=== PATIENT | female | born 1965 | race Caucasian/White ===

== ENCOUNTER 2016-09-20 20:07 | Observation (INO) | payer OTHER ==
[2016-09-20] MEDS ORDERED: Naloxone 0.4 mg/ml Inj (Adult) ONE (21:00)
[2016-09-20] MEDS ORDERED: Sodium Chloride 0.9% 1,000 ML IV ONE (21:04)
--- NOTE | 2016-09-20 21:04 | C.PDOC ---
History Of Present Illness Patient presents to the ER after found her lethargic next to insulin needles. No injury or complaint can be noted at this time. Chief Complaint (Nursing): Altered Mental Status History Per: Family () History/Exam Limitations: Clinical Condition Onset/Duration Of Symptoms: Hrs Current Symptoms Are (Timing): Still Present Exacerbating Factor(s): Diabetic Past Medical History Reviewed: Historical Data, Nursing Documentation, Vital Signs Vital Signs: Last Vital Signs Temp Pulse 64 09/20/16 20:20 Resp 20 09/20/16 20:20 BP 85/52 L 09/20/16 20:20 Pulse Ox 100 09/20/16 23:12 - Medical History PMH: Back Problems, Bipolar Disorder, CAD, Diabetes, Deep Vein Thrombosis, HTN, Hypercholesterolemia, Schizophrenia Surgical History: Coronary Stent - [facility] Procedures INSERTION OF ENDOTRACHEAL AIRWAY INTO TRACHEA, VIA OPENING (06/09/16) INSERTION OF INFUSION DEV INTO SUP VENA CAVA, PERC APPROACH (06/09/16) RESPIRATORY VENTILATION, LESS THAN 24 CONSECUTIVE HOURS (06/09/16) Family History: States: No Known Family Hx - Social History Hx Tobacco Use: No Hx Alcohol Use: No Hx Substance Use: No - Immunization History Hx Tetanus Toxoid Vaccination: No Hx Influenza Vaccination: No Hx Pneumococcal Vaccination: No Review Of Systems Psych: Positive for: Other (Lethargic) Physical Exam - Physical Exam Appears: Non-toxic, Other (Lethargic) Skin: Warm, Dry Eye(s): bilateral: Other (Pin point pupils) Oral Mucosa: Moist Chest: Symmetrical, No Tenderness Cardiovascular: Rhythm Regular, No Murmur Respiratory: No Rales, No Rhonchi, No Wheezing Gastrointestinal/Abdominal: Bowel Sounds (tympanic to percussion), Soft, No Tenderness Extremity: Other (Moves extremities) Neurological/Psych: Other (Responsive to light and stimulation.) ED Course And Treatment - Laboratory Results Result Diagrams: 09/20/16 21:07 09/20/16 21:07 O2 Sat by Pulse Oximetry: 100 (Room air) Progress Note: Blood work, urinalysis, EKG, CXR, and head CT w/ contrast ordered. Narcan IVP administered, patient shows improvement after 1 mg of narcan. Critical Care Time - Critical Care Note Total Time (in mins): 40 Documented critical care: time excludes all time spent performing seperately billable procedures. Disposition Discussed With : Sravan Lyle Comment: accepted the pt on his service and took over the care at 12 am Doctor Will See Patient In The: ED Counseled Patient/Family Regarding: Studies Performed, Diagnosis - Disposition Disposition: HOSPITALIZED Disposition Time: 21:04 Condition: FAIR - Clinical Impression Clinical Impression: Hypoglycemia, Altered mental status - Scribe Statement The provider has reviewed the documentation as recorded by the Scribe Timothy Angelo All medical record entries made by the Scribe were at my direction and personally dictated by me. I have reviewed the chart and agree that the record accurately reflects my personal performance of the history, physical exam, medical decision making, and the department course for this patient. I have also personally directed, reviewed, and agree with the discharge instructions and disposition. Decision To Admit - Pt Status Changed To: Hospital Disposition Of: Inpatient - Admit Certification Admit to Inpatient:: After my assessment, the patient will require hospitalization for at least two midnights. This is because of the severity of symptoms shown, intensity of services needed, and/or the medical risk in this patient being treated as an outpatient. - InPatient: Physician Admission Certification:: After my assessment, the patient will require hospitalization for at least two midnights. This is because of the severity of symptoms shown, intensity of services needed, and/or the medical risk in this patient being treated as an outpatient. - . Bed Request Type: Telemetry Admitting Physician: Sravan Lyle Patient Diagnosis: Hypoglycemia, Altered mental status
[2016-09-20] MEDS ORDERED: Naloxone 0.4 mg/ml Inj (Adult) IVP ONE ×2 (21:15→21:30)
[2016-09-20 21:24] LABS: BASO # 0.1 K/uL (0.0-0.2); EOS # 0.4 K/uL (0.0-0.7); EOS % 4.2 % (0.0-4.0); HEMATOCRIT 38.2 % (34.0-47.0); LYMPH # 3.3 K/uL (1.0-4.3); LYMPH % 37.6 % (20.0-40.0); MEAN CELL VOLUME 83.7 fL (81.0-99.0); MEAN CORPUSCULAR HEMOGLOBIN 27.9 pg (27.0-31.0); MEAN CORPUSCULAR HGB CONC 33.3 g/dL (33.0-37.0); MEAN PLATELET VOLUME 8.6 fL (7.2-11.7); MONO # 0.6 K/uL (0.0-0.8); MONO % 6.5 % (0.0-10.0); RED CELL DISTRIBUTION WIDTH 13.6 % (11.5-14.5); WHITE BLOOD COUNT 8.8 K/uL (4.8-10.8)
[2016-09-20 21:30] LABS: CHLORIDE 105 mmol/L (98-107); POTASSIUM 4.8 mmol/L (3.6-5.2); SODIUM 140 mmol/L (132-148)
[2016-09-20 21:32] LABS: AST/SGOT 33 U/L (14-36); BILIRUBIN,TOTAL 0.6 mg/dL (0.2-1.3); CARBON DIOXIDE 25 mmol/L (22-30); GFR AFRICAN-AMERICAN 57
[2016-09-20 21:33] LABS: ALB/GLOB RATIO 1.2 (1.0-2.1); ALKALINE PHOSPHATASE 92 U/L (38-126); ALT/SGPT 35 U/L (9-52); BLOOD UREA NITROGEN 17 mg/dL (7-17); CALCIUM 8.9 mg/dl (8.6-10.4); GLUCOSE,RANDOM 68 mg/dL (65-105)
[2016-09-20 21:42] LABS: RBC URINE 3 /hpf (0-3); URINE BACTERIA MOD (<OCC); URINE BILIRUBIN NEGATIVE (NEGATIVE); URINE BLOOD NEGATIVE (NEGATIVE); URINE GLUCOSE (UA) 3+ mg/dL (Normal); URINE KETONE NEGATIVE (NEGATIVE); URINE LEUKOCYTE ESTERASE 3+ Leu/uL (Negative); URINE PROTEIN 2+ mg/dL (NEGATIVE); URINE UROBILINOGEN NORMAL mg/dL (0.2-1.0); WBC URINE 304 /hpf (0-5)
[2016-09-20 21:46] LABS: URINE COLOR YELLOW (YELLOW)
[2016-09-20] MEDS ORDERED: cefTRIAXone IV 1 gm in Dextros 50 ML IVPB ONE ×2 (21:56→22:04)
--- NOTE | 2016-09-20 22:10 | CT ---
EXAM: CT Head Without Intravenous Contrast CLINICAL HISTORY: 51 years old, female; Injury or trauma; Fall; Initial encounter; Concussion / head injury; Additional info: Sp fall exam done without contrast TECHNIQUE: Axial computed tomography images of the head/brain without intravenous contrast. This CT exam was performed using one or more of the following dose reduction techniques: automated exposure control, adjustment of the mA and/or kV according to patient size, and/or use of iterative reconstruction technique. COMPARISON: CT - HEAD W/O CONTRAST 06/09/2016 5:55:17 AM FINDINGS: Brain: No acute intracranial hemorrhage. No significant white matter disease. No edema. Ventricles: No significant ventriculomegaly. Bones: No acute displaced fracture. Sinuses: Unremarkable as visualized. No acute sinusitis. Mastoid air cells: Unremarkable as visualized. No mastoid effusion. IMPRESSION: No acute intracranial hemorrhage, or suspicious mass effect.
[2016-09-20 22:51] LABS: VENOUS BLOOD GAS BASE EXCESS -0.6 mmol/L (0.0-2.0); VENOUS BLOOD GAS PCO2 64 mmHg (40-60); VENOUS BLOOD PH 7.25 (7.32-7.43)
[2016-09-20] MEDS ORDERED: Dextrose 50% SYRINGE Inj (50 ml) IV STA (23:46)
[2016-09-21] MEDS ORDERED: Dextrose 50% SYRINGE Inj (50 ml) ONE (00:30)
[2016-09-21 01:36] LABS: ABG ALLEN TEST POS; ARTERIAL BLOOD HGB O2 SAT 96.2 % (95.0-98.0); CARBOXYHEMOGLOBIN 1.7 % (0.5-1.5); DRAW SITE RR; HHB 1.1 % (0.0-5.0)
--- NOTE | 2016-09-21 03:59 | CP.PCM.HP ---
Addendum entered and electronically signed by Marleny Longoria DO, DO 07:59: entered in error: patient had history DVT right leg, provocation unknown. no known history cholecystectomy. Addendum entered and electronically signed by Marleny Longoria DO, DO 05:56: Per Clinic EMR, home meds: Celexa 20mg daily HCTZ 25mg daily Lisinopril 5mg daily Simvastatin 10mg HS Gabapentin 300mg TID Humalog 75/25 15u BID Pt has referral/ apt to see Dr. Estrella 09/29 for history of urinary incontinence Original Note: <Marleny Longoria DO - Last Filed: 09/21/16 04:13> History of Present Illness - History of Present Illness History of Present Illness: Patient is a 51 year old female with past medical history of HTN, HLD, DM, right leg DVT, and anxiety who presents to the ED brought by lennie for altered mental status. Lennie states that he saw patient in the afternoon of 09/20, acting normally, watching TV. Lennie states he went out of the house to do errands and that when he came back the patient was on the sofa with her head down and headphones on and was not responding much to his questions. Lennie states that he thought her blood sugar was low so he gave her orange juice but did not notice a change. He states he did not think she looked right so he called EMS. Patient states that she remembered feeling dizzy when getting up to use the bathroom earlier. She states that she knew her fiance was talking to her but she did not feel that she was fully present in the situation. Upon arrival to the ED, the patient received total 1mg narcan. Per ED report, patient became more awake and was talking. At time of examination, patient was at her baseline per her fiance. Patient denies recent medication changes but is not sure of all of her medications. Patient reports cough, snoring, urinary and occasional fecal incontinence, right leg swelling that is chronic, chronic back pain, as well as diabetic nerve pain. PMD: clinic PMHx: as above, as well as Hep C, insominia, urinary and fecal incontinence that has been chronic for years; DVT occurred following cholecystectomy- was on xarelto for 6 months PSHx: IVC filter, cholecystectomy FamHx: denies Social Hx: denies tobacco, alcohol, drugs; lives with fiance; at baseline walks occasionally with a cane Present on Admission - Present on Admission Any Indicators Present on Admission: Yes History of DVT/PE: Yes Review of Systems - Constitutional Constitutional: absent: Chills, Fever - EENT Ears: Dizziness (felt would fall) - Cardiovascular Cardiovascular: absent: Chest Pain, Dyspnea - Respiratory Respiratory: Cough - Gastrointestinal Gastrointestinal: absent: Nausea, Vomiting - Genitourinary Genitourinary: Urinary Incontinence - Musculoskeletal Musculoskeletal: Back Pain - Integumentary Integumentary: Change in Pigmentation (chronic to right leg following DVT) - Neurological Neurological: Tingling Past Patient History - Infectious Disease Hx of Infectious Diseases: None - Past Medical History & Family History Past Medical History?: Yes - Past Social History Smoking Status: Never Smoked - CARDIAC Hx Hypercholesterolemia: Yes Hx Hypertension: Yes - PULMONARY Hx Respiratory Disorders: Yes - ENDOCRINE/METABOLIC Hx Diabetes Mellitus Type 2: Yes - INTEGUMENTARY Hx Camacho: Yes - MUSCULOSKELETAL/RHEUMATOLOGICAL Hx Falls: Yes (Fell on Ice 6-7 months ago) - PSYCHIATRIC Hx Bipolar Disorder: Yes Hx Schizophrenia: Yes Hx Substance Use: No - SURGICAL HISTORY Hx Coronary Stent: Yes - ANESTHESIA Hx Anesthesia: Yes Hx Anesthesia Reactions: No Meds Allergies/Adverse Reactions: Allergies Allergy/AdvReac Type Severity Reaction Status Date / Time No Known Allergies Allergy Verified 09/20/16 20:26 Physical Exam - Constitutional Appears: No Acute Distress, Unkempt - Head Exam Head Exam: ATRAUMATIC, NORMOCEPHALIC - Eye Exam Eye Exam: EOMI, Nystagmus Additional comments: pupils small - ENT Exam ENT Exam: Mucous Membranes Moist - Neck Exam Neck exam: Positive for: Full Rom. Negative for: Lymphadenopathy - Respiratory Exam Respiratory Exam: Clear to Auscultation Bilateral. absent: Rales, Rhonchi, Wheezes - Cardiovascular Exam Cardiovascular Exam: +S1, +S2 - GI/Abdominal Exam GI & Abdominal Exam: Distended, Normal Bowel Sounds, Soft, Tenderness ( suprapubic). absent: Firm - Exam Additional comments: perales catheter present - Extremities Exam Extremities exam: Positive for: pedal edema (bilateral, right greater than left) . Negative for: calf tenderness - Neurological Exam Neurological exam: Alert, CN II-XII Intact, Motor Sensory Deficit, Oriented x3 Additional comments: 5/5 muscle strength upper and lower extremities, no dysmetria - Skin Skin Exam: Warm Additional comments: venous stasis color changes to right leg Results - Vital Signs Recent Vital Signs: Last Vital Signs Temp 97.4 F L 09/21/16 02:15 Pulse 61 09/21/16 02:15 Resp 20 09/21/16 02:15 BP 102/64 09/21/16 02:15 Pulse Ox 99 09/21/16 02:15 - Labs Result Diagrams: 09/20/16 21:07 09/20/16 21:07 Labs: Laboratory Results - last 24 hr 09/21/16 09/21/16 00:33 01:30 Puncture Site Rr pCO2 50 H pO2 100 HCO3 25.4 ABG pH 7.34 L ABG Total CO2 28.5 H ABG O2 Saturation 98.9 H ABG Base Excess 0.6 ABG Hemoglobin 11.6 L ABG Carboxyhemoglobin 1.7 H POC ABG HHb (Measured) 1.1 ABG Methemoglobin 1.0 Pepe Test Pos Hgb O2 Saturation 96.2 Liter Flow 2.0 POC Glucose (mg/dL) 94 Assessment & Plan (1) Altered mental status Assessment and Plan: Head CT negative in ER for hemorrhage patient at baseline per fiance at time of examination patient received 1mg narcan in ER UDS negative, alcohol <10 VBG done initially showed pH of 7.25, lactate 1.0 ABG ordered after examination shows pCO2 of 50, elevated but pH is 7.34 blood sugar 68 on CMP, finger stick shows glucose of 94 patient AAO x3 on time of examination UA done from clean cath by perales catheter- shows 3+ leukocyte esterase, 304 WBC , moderate bacteria Status: Acute (2) Urinary tract infection Assessment and Plan: UA done from clean cath by perales catheter- shows 3+ leukocyte esterase, 304 WBC , moderate bacteria urine culture ordered starting ceftriaxone 1g daily Status: Suspected Diagnosis Date: 12/05/13 (3) Diabetic neuropathy Assessment and Plan: will call patient's pharmacy- [facility]- to verify gabapentin dose Status: Chronic (4) Hypertension Assessment and Plan: patient currently normotensive will verify home medications and start if patient becomes hypertensive Status: Chronic (5) Diabetes mellitus Assessment and Plan: accuchecks achs with sliding scale coverage Status: Chronic (6) History of hypercholesterolemia Assessment and Plan: will verify patient's home medication from pharmacy Status: Chronic (7) Prophylactic measure Assessment and Plan: heparin 5000 q8h protonix 40mg daily Status: Acute Diagnosis Date: 12/05/13 <Sravan Lyle P - Last Filed: 09/26/16 20:23> Results - Vital Signs Recent Vital Signs: Last Vital Signs Temp 99.1 F 09/21/16 15:08 Pulse 71 09/21/16 15:30 Resp 20 09/21/16 15:08 BP 119/77 09/21/16 15:08 Pulse Ox 94 L 09/21/16 15:08 - Labs Result Diagrams: 09/21/16 11:21 09/21/16 11:21 Attending/Attestation - Attestation I have personally seen and examined this patient.: Yes I have fully participated in the care of the patient.: Yes I have reviewed all pertinent clinical information: Yes
[2016-09-21] MEDS: (Novolin R) Insulin Human Regular 100 units/ml vial SC SCH ×3 (08:19→17:52)
--- NOTE | 2016-09-21 08:38 | RAD ---
PROCEDURE: CHEST RADIOGRAPH, 1 VIEW HISTORY: Overdose COMPARISON: 06/14/2016 FINDINGS: LUNGS: Moderate venous congestion. Right hilar prominence. PLEURA: No pneumothorax or pleural fluid seen. CARDIOVASCULAR: Cardiomegaly. Tortuous, prominent, and ectatic aorta. OSSEOUS STRUCTURES: No significant abnormalities. VISUALIZED UPPER ABDOMEN: Normal. OTHER FINDINGS: None. IMPRESSION: Moderate venous congestion. Right hilar prominence.
[2016-09-21] MEDS ORDERED: Pantoprazole 40 mg EC Tab PO SCH (10:00)
[2016-09-21] MEDS ORDERED: cefTRIAXone IV 1 gm in Dextros 1 GM in Dextrose 5% In Water 50 ML IVPB SCH ×2 (10:00)
[2016-09-21 11:34] LABS: BASO # 0.1 K/uL (0.0-0.2); BASO % 0.9 % (0.0-2.0); EOS # 0.3 K/uL (0.0-0.7); EOS % 2.8 % (0.0-4.0); HEMATOCRIT 36.5 % (34.0-47.0); LYMPH # 2.4 K/uL (1.0-4.3); LYMPH % 25.8 % (20.0-40.0); MEAN CORPUSCULAR HEMOGLOBIN 27.7 pg (27.0-31.0); MONO # 0.4 K/uL (0.0-0.8); NRBC % 0.1 % (0.0-2.0); RED CELL DISTRIBUTION WIDTH 13.7 % (11.5-14.5); WHITE BLOOD COUNT 9.2 K/uL (4.8-10.8)
[2016-09-21 11:48] LABS: ALB/GLOB RATIO 1.2 (1.0-2.1); BILIRUBIN,TOTAL 0.7 mg/dL (0.2-1.3); TOTAL PROTEIN 6.4 g/dL (6.3-8.3)
[2016-09-21 11:49] LABS: CALCIUM 8.5 mg/dl (8.6-10.4)
[2016-09-21 16:04] VITALS: BP 119/77; PULSE 71; RESP 20; TEMP 99.1; O2SAT 94
--- NOTE | 2016-09-21 16:15 | CP.PCM.DIS ---
<Violetta Loaiza - Last Filed: 09/21/16 16:16> Provider - Provider Date of Admission: 09/20/16 23:57 Attending physician: Amandeep Blackwell DO Primary care physician: Flakita Dunlap Consults: None Time Spent in preparation of Discharge (in minutes): 60 Hospital Course - Lab Results Lab Results: Most Recent Lab Values WBC 9.2 K/uL (4.8-10.8) 09/21/16 11:21 RBC 4.34 Mil/uL (3.80-5.20) 09/21/16 11:21 Hgb 12.0 g/dL (11.0-16.0) 09/21/16 11:21 Hct 36.5 % (34.0-47.0) 09/21/16 11:21 MCV 84.0 fL (81.0-99.0) 09/21/16 11:21 MCH 27.7 pg (27.0-31.0) 09/21/16 11:21 MCHC 33.0 g/dL (33.0-37.0) 09/21/16 11:21 RDW 13.7 % (11.5-14.5) 09/21/16 11:21 Plt Count 208 K/uL (130-400) 09/21/16 11:21 MPV 9.0 fL (7.2-11.7) 09/21/16 11:21 Neut % (Auto) 66.5 % (50.0-75.0) 09/21/16 11:21 Lymph % (Auto) 25.8 % (20.0-40.0) 09/21/16 11:21 Sandoval % (Auto) 4.0 % (0.0-10.0) 09/21/16 11:21 Eos % (Auto) 2.8 % (0.0-4.0) 09/21/16 11:21 Baso % (Auto) 0.9 % (0.0-2.0) 09/21/16 11:21 Neut # 6.1 K/uL (1.8-7.0) 09/21/16 11:21 Lymph # 2.4 K/uL (1.0-4.3) 09/21/16 11:21 Sandoval # 0.4 K/uL (0.0-0.8) 09/21/16 11:21 Eos # 0.3 K/uL (0.0-0.7) 09/21/16 11:21 Baso # 0.1 K/uL (0.0-0.2) 09/21/16 11:21 PT 10.7 SECONDS (9.7-12.2) 09/20/16 21:07 INR 1.0 09/20/16 21:07 APTT 29 SECONDS (21-34) 09/20/16 21:07 Puncture Site Rr 09/21/16 01:30 pCO2 50 mm/Hg (35-45) H 09/21/16 01:30 pO2 100 mm/Hg (80-100) 09/21/16 01:30 HCO3 25.4 mmol/L (21-28) 09/21/16 01:30 ABG pH 7.34 (7.35-7.45) L 09/21/16 01:30 ABG Total CO2 28.5 mmol/L (22-28) H 09/21/16 01:30 ABG O2 Saturation 98.9 % (95-98) H 09/21/16 01:30 ABG Base Excess 0.6 mmol/L (-2.0-3.0) 09/21/16 01:30 ABG Hemoglobin 11.6 g/dL (11.7-17.4) L 09/21/16 01:30 ABG Carboxyhemoglobin 1.7 % (0.5-1.5) H 09/21/16 01:30 POC ABG HHb (Measured) 1.1 % (0.0-5.0) 09/21/16 01:30 ABG Methemoglobin 1.0 % (0.0-3.0) 09/21/16 01:30 Pepe Test Pos 09/21/16 01:30 VBG pH 7.25 (7.32-7.43) L 09/20/16 22:40 VBG pCO2 64 mmHg (40-60) H 09/20/16 22:40 VBG HCO3 23.3 mmol/L 09/20/16 22:40 VBG Total CO2 30.1 mmol/L (22-28) H 09/20/16 22:40 VBG O2 Sat (Calc) 74.3 % (40-65) H 09/20/16 22:40 VBG Base Excess -0.6 mmol/L (0.0-2.0) L 09/20/16 22:40 VBG Potassium 4.4 mmol/L (3.6-5.2) 09/20/16 22:40 Hgb O2 Saturation 96.2 % (95.0-98.0) 09/21/16 01:30 Sodium 142.0 mmol/l (132-148) 09/20/16 22:40 Chloride 113.0 mmol/L (98-107) H 09/20/16 22:40 Glucose 59 mg/dl (65-105) L 09/20/16 22:40 Lactate 1.0 mmol/L (0.7-2.1) 09/20/16 22:40 Liter Flow 2.0 09/21/16 01:30 Sodium 142 mmol/L (132-148) 09/21/16 11:21 Potassium 5.0 mmol/L (3.6-5.2) 09/21/16 11:21 Chloride 102 mmol/L (98-107) 09/21/16 11:21 Carbon Dioxide 31 mmol/L (22-30) H 09/21/16 11:21 Anion Gap 14 (10-20) 09/21/16 11:21 BUN 20 mg/dL (7-17) H 09/21/16 11:21 Creatinine 1.2 MG/DL (0.7-1.2) 09/21/16 11:21 Est GFR ( Amer) 57 09/21/16 11:21 Est GFR (Non-Af Amer) 47 09/21/16 11:21 POC Glucose (mg/dL) 184 mg/dL (65-110) H 09/21/16 12:05 Random Glucose 95 mg/dL (65-105) 09/21/16 11:21 Calcium 8.5 mg/dl (8.6-10.4) L 09/21/16 11:21 Total Bilirubin 0.7 mg/dL (0.2-1.3) 09/21/16 11:21 AST 34 U/L (14-36) 09/21/16 11:21 ALT 30 U/L (9-52) 09/21/16 11:21 Alkaline Phosphatase 84 U/L (38-126) 09/21/16 11:21 Total Protein 6.4 g/dL (6.3-8.3) 09/21/16 11:21 Albumin 3.5 g/dL (3.5-5.0) 09/21/16 11:21 Globulin 2.9 gm/dL (2.2-3.9) 09/21/16 11:21 Albumin/Globulin Ratio 1.2 (1.0-2.1) 09/21/16 11:21 Venous Blood Potassium 4.4 mmol/L (3.6-5.2) 09/20/16 22:40 Urine Color Yellow (YELLOW) 09/20/16 21:07 Urine Clarity Hazy (Clear) 09/20/16 21:07 Urine pH 5.0 (5.0-8.0) 09/20/16 21:07 Ur Specific [place] 1.022 (1.003-1.030) 09/20/16 21:07 Urine Protein 2+ mg/dL (NEGATIVE) H 09/20/16 21:07 Urine Glucose (UA) 3+ mg/dL (Normal) H 09/20/16 21:07 Urine Ketones Negative mg/dL (NEGATIVE) 09/20/16 21:07 Urine Blood Negative (NEGATIVE) 09/20/16 21:07 Urine Nitrate Positive (NEGATIVE) H 09/20/16 21:07 Urine Bilirubin Negative (NEGATIVE) 09/20/16 21:07 Urine Urobilinogen Normal mg/dL (0.2-1.0) 09/20/16 21:07 Ur Leukocyte Esterase 3+ Eduarda/uL (Negative) H 09/20/16 21:07 Urine WBC (Auto) 304 /hpf (0-5) H 09/20/16 21:07 Urine RBC (Auto) 3 /hpf (0-3) 09/20/16 21:07 Ur Squamous Epith Cells 4 /hpf (0-5) 09/20/16 21:07 Urine Bacteria Mod (<OCC) H 09/20/16 21:07 Urine HCG, Qual Negative (NEGATIVE) 09/20/16 22:43 Salicylates 2.4 mg/dL 1 09/20/16 21:07 Urine Opiates Screen Negative (NEGATIVE) 09/20/16 21:04 Urine Methadone Screen Negative (NEGATIVE) 09/20/16 21:04 Acetaminophen < 10.0 ug/mL (10.0-30.0) L 09/20/16 21:07 Ur Barbiturates Screen Negative (NEGATIVE) 09/20/16 21:04 Ur Phencyclidine Scrn Negative (NEGATIVE) 09/20/16 21:04 Ur Amphetamines Screen Negative (NEGATIVE) 09/20/16 21:04 U Benzodiazepines Scrn Negative (NEGATIVE) 09/20/16 21:04 U Oth Cocaine Metabols Negative (NEGATIVE) 09/20/16 21:04 U Cannabinoids Screen Negative (NEGATIVE) 09/20/16 21:04 Alcohol, Quantitative < 10 mg/dl (0-10) 09/20/16 22:28 Serum Ketones Negative (NEGATIVE) 09/20/16 21:07 - Hospital Course Hospital Course: Patient is a 51 year old female with past medical history of HTN, HLD, DM, right leg DVT, and anxiety who presents to the ED brought by lennie for altered mental status. Lennie states that he saw patient in the afternoon of 09/20, acting normally, watching TV. Lennie states he went out of the house to do errands and that when he came back the patient was on the sofa with her head down and headphones on and was not responding much to his questions. Lennie states that he thought her blood sugar was low so he gave her orange juice but did not notice a change. He states he did not think she looked right so he called EMS. Patient states that she remembered feeling dizzy when getting up to use the bathroom earlier. She states that she knew her fiance was talking to her but she did not feel that she was fully present in the situation. Upon arrival to the ED, the patient received total 1mg narcan. Per ED report, patient became more awake and was talking. At time of examination, patient was at her baseline per her fiance. Patient denies recent medication changes but is not sure of all of her medications. Patient reports cough, snoring, urinary and occasional fecal incontinence, right leg swelling that is chronic, chronic back pain, as well as diabetic nerve pain. Pt admitted to hospital for AMS. CT brain negative. Labs WNL. UDS negative. U /A positive for UTI. Pt started on Antibiotics. AMS resolved on hospital day 0 , repeat lab work also WNL. Pt stable and ready for discharge home as per Dr. Blackwell to continue PO antibiotics for UTI. Pt instructed to follow up with PMD- [facility]. Diagnoses UTI Transient Altered mental status- resolved to baseline Hx urinary incontinence Hx Fecal incontinence HTN HLD Hx R LE DVT anxiety DM Hep C Insomnia Please see EMR for full details of hospitalization. - Date & Time of H&P Date of H&P: 09/21/16 Time of H&P: 03:54 Discharge Exam - Head Exam Head Exam: ATRAUMATIC, NORMAL INSPECTION, NORMOCEPHALIC - Eye Exam Eye Exam: EOMI, Normal appearance, PERRL Pupil Exam: NORMAL ACCOMODATION, PERRL - ENT Exam ENT Exam: Mucous Membranes Moist, Normal Exam - Neck Exam Neck exam: Full Rom, Normal Inspection - Respiratory Exam Respiratory Exam: Clear to PA & Lateral, NORMAL BREATHING PATTERN, UNREMARKABLE. absent: Accessory Muscle Use - Cardiovascular Exam Cardiovascular Exam: REGULAR RHYTHM, +S1, +S2 - GI/Abdominal Exam GI & Abdominal Exam: Normal Bowel Sounds, Soft, Unremarkable. absent: Tenderness - Extremities Exam Extremities exam: normal inspection, pedal edema (trace) - Neurological Exam Neurological exam: Alert, CN II-XII Intact, Oriented x3 - Psychiatric Exam Psychiatric exam: Normal Affect, Normal Mood - Skin Skin Exam: Dry, Intact, Normal Color, Warm Discharge Plan - Discharge Medications Prescriptions: Ciprofloxacin HCl [Cipro] 250 mg PO BID #6 tab - Follow Up Plan Condition: STABLE Disposition: HOME/ ROUTINE Instructions: Ciprofloxacin (By mouth), Urinary Tract Infection in Women (DC), Heart Healthy Diet (DC), Altered Mental Status (GEN) Additional Instructions: Patient medically stable for discharge home as per Dr. Blackwell. Please follow up with your primary care physician - [facility]- within 1 week after discharge from the hospital. Please take all medications as prescribed. You are being discharged on an antibiotic for a urinary tract infection. Please take the antibiotic as written. Eat yogurt on the days you take the antibiotic. If you have a recurrence of symptoms, please return to the hospital. Referrals: [facility] [Outside] <Amandeep Blackwell - Last Filed: 09/21/16 18:08> Provider - Provider Date of Admission: 09/20/16 23:57 Attending physician: Amandeep Blackwell, DO Hospital Course - Lab Results Lab Results: Most Recent Lab Values WBC 9.2 K/uL (4.8-10.8) 09/21/16 11:21 RBC 4.34 Mil/uL (3.80-5.20) 09/21/16 11:21 Hgb 12.0 g/dL (11.0-16.0) 09/21/16 11:21 Hct 36.5 % (34.0-47.0) 09/21/16 11:21 MCV 84.0 fL (81.0-99.0) 09/21/16 11:21 MCH 27.7 pg (27.0-31.0) 09/21/16 11:21 MCHC 33.0 g/dL (33.0-37.0) 09/21/16 11:21 RDW 13.7 % (11.5-14.5) 09/21/16 11:21 Plt Count 208 K/uL (130-400) 09/21/16 11:21 MPV 9.0 fL (7.2-11.7) 09/21/16 11:21 Neut % (Auto) 66.5 % (50.0-75.0) 09/21/16 11:21 Lymph % (Auto) 25.8 % (20.0-40.0) 09/21/16 11:21 Sandoval % (Auto) 4.0 % (0.0-10.0) 09/21/16 11:21 Eos % (Auto) 2.8 % (0.0-4.0) 09/21/16 11:21 Baso % (Auto) 0.9 % (0.0-2.0) 09/21/16 11:21 Neut # 6.1 K/uL (1.8-7.0) 09/21/16 11:21 Lymph # 2.4 K/uL (1.0-4.3) 09/21/16 11:21 Sandoval # 0.4 K/uL (0.0-0.8) 09/21/16 11:21 Eos # 0.3 K/uL (0.0-0.7) 09/21/16 11:21 Baso # 0.1 K/uL (0.0-0.2) 09/21/16 11:21 PT 10.7 SECONDS (9.7-12.2) 09/20/16 21:07 INR 1.0 09/20/16 21:07 APTT 29 SECONDS (21-34) 09/20/16 21:07 Puncture Site Rr 09/21/16 01:30 pCO2 50 mm/Hg (35-45) H 09/21/16 01:30 pO2 100 mm/Hg (80-100) 09/21/16 01:30 HCO3 25.4 mmol/L (21-28) 09/21/16 01:30 ABG pH 7.34 (7.35-7.45) L 09/21/16 01:30 ABG Total CO2 28.5 mmol/L (22-28) H 09/21/16 01:30 ABG O2 Saturation 98.9 % (95-98) H 09/21/16 01:30 ABG Base Excess 0.6 mmol/L (-2.0-3.0) 09/21/16 01:30 ABG Hemoglobin 11.6 g/dL (11.7-17.4) L 09/21/16 01:30 ABG Carboxyhemoglobin 1.7 % (0.5-1.5) H 09/21/16 01:30 POC ABG HHb (Measured) 1.1 % (0.0-5.0) 09/21/16 01:30 ABG Methemoglobin 1.0 % (0.0-3.0) 09/21/16 01:30 Pepe Test Pos 09/21/16 01:30 VBG pH 7.25 (7.32-7.43) L 09/20/16 22:40 VBG pCO2 64 mmHg (40-60) H 09/20/16 22:40 VBG HCO3 23.3 mmol/L 09/20/16 22:40 VBG Total CO2 30.1 mmol/L (22-28) H 09/20/16 22:40 VBG O2 Sat (Calc) 74.3 % (40-65) H 09/20/16 22:40 VBG Base Excess -0.6 mmol/L (0.0-2.0) L 09/20/16 22:40 VBG Potassium 4.4 mmol/L (3.6-5.2) 09/20/16 22:40 Hgb O2 Saturation 96.2 % (95.0-98.0) 09/21/16 01:30 Sodium 142.0 mmol/l (132-148) 09/20/16 22:40 Chloride 113.0 mmol/L (98-107) H 09/20/16 22:40 Glucose 59 mg/dl (65-105) L 09/20/16 22:40 Lactate 1.0 mmol/L (0.7-2.1) 09/20/16 22:40 Liter Flow 2.0 09/21/16 01:30 Sodium 142 mmol/L (132-148) 09/21/16 11:21 Potassium 5.0 mmol/L (3.6-5.2) 09/21/16 11:21 Chloride 102 mmol/L (98-107) 09/21/16 11:21 Carbon Dioxide 31 mmol/L (22-30) H 09/21/16 11:21 Anion Gap 14 (10-20) 09/21/16 11:21 BUN 20 mg/dL (7-17) H 09/21/16 11:21 Creatinine 1.2 MG/DL (0.7-1.2) 09/21/16 11:21 Est GFR ( Amer) 57 09/21/16 11:21 Est GFR (Non-Af Amer) 47 09/21/16 11:21 POC Glucose (mg/dL) 287 mg/dL (65-110) H 09/21/16 16:56 Random Glucose 95 mg/dL (65-105) 09/21/16 11:21 Calcium 8.5 mg/dl (8.6-10.4) L 09/21/16 11:21 Total Bilirubin 0.7 mg/dL (0.2-1.3) 09/21/16 11:21 AST 34 U/L (14-36) 09/21/16 11:21 ALT 30 U/L (9-52) 09/21/16 11:21 Alkaline Phosphatase 84 U/L (38-126) 09/21/16 11:21 Total Protein 6.4 g/dL (6.3-8.3) 09/21/16 11:21 Albumin 3.5 g/dL (3.5-5.0) 09/21/16 11:21 Globulin 2.9 gm/dL (2.2-3.9) 09/21/16 11:21 Albumin/Globulin Ratio 1.2 (1.0-2.1) 09/21/16 11:21 Venous Blood Potassium 4.4 mmol/L (3.6-5.2) 09/20/16 22:40 Urine Color Yellow (YELLOW) 09/20/16 21:07 Urine Clarity Hazy (Clear) 09/20/16 21:07 Urine pH 5.0 (5.0-8.0) 09/20/16 21:07 Ur Specific [place] 1.022 (1.003-1.030) 09/20/16 21:07 Urine Protein 2+ mg/dL (NEGATIVE) H 09/20/16 21:07 Urine Glucose (UA) 3+ mg/dL (Normal) H 09/20/16 21:07 Urine Ketones Negative mg/dL (NEGATIVE) 09/20/16 21:07 Urine Blood Negative (NEGATIVE) 09/20/16 21:07 Urine Nitrate Positive (NEGATIVE) H 09/20/16 21:07 Urine Bilirubin Negative (NEGATIVE) 09/20/16 21:07 Urine Urobilinogen Normal mg/dL (0.2-1.0) 09/20/16 21:07 Ur Leukocyte Esterase 3+ Eduarda/uL (Negative) H 09/20/16 21:07 Urine WBC (Auto) 304 /hpf (0-5) H 09/20/16 21:07 Urine RBC (Auto) 3 /hpf (0-3) 09/20/16 21:07 Ur Squamous Epith Cells 4 /hpf (0-5) 09/20/16 21:07 Urine Bacteria Mod (<OCC) H 09/20/16 21:07 Urine HCG, Qual Negative (NEGATIVE) 09/20/16 22:43 Salicylates 2.4 mg/dL 1 09/20/16 21:07 Urine Opiates Screen Negative (NEGATIVE) 09/20/16 21:04 Urine Methadone Screen Negative (NEGATIVE) 09/20/16 21:04 Acetaminophen < 10.0 ug/mL (10.0-30.0) L 09/20/16 21:07 Ur Barbiturates Screen Negative (NEGATIVE) 09/20/16 21:04 Ur Phencyclidine Scrn Negative (NEGATIVE) 09/20/16 21:04 Ur Amphetamines Screen Negative (NEGATIVE) 09/20/16 21:04 U Benzodiazepines Scrn Negative (NEGATIVE) 09/20/16 21:04 U Oth Cocaine Metabols Negative (NEGATIVE) 09/20/16 21:04 U Cannabinoids Screen Negative (NEGATIVE) 09/20/16 21:04 Alcohol, Quantitative < 10 mg/dl (0-10) 09/20/16 22:28 Serum Ketones Negative (NEGATIVE) 09/20/16 21:07 Attending/Attestation - Attestation I have personally seen and examined this patient.: Yes I have fully participated in the care of the patient.: Yes I have reviewed all pertinent clinical information, including history, physical exam and plan: Yes Notes (Text): 09/21/16 18:06 Medical attending: Patient was seen and examined by me, agrees the above note by medical records auditor. The patient appears to have a slow affect however she was answering all questions appropriately. She is also following commands as well we had her work with physical therapy just to see how well she do she did okay. Review of the urinalysis shows she likely has a UTI and so recommended give her antibiotics. Her blood sugars have been okay as well. Her urine drug screen was negative for opiates. From what I understand there was some initial concern that she could' ve taken some type of narcotic medication hence she was given IV Narcan in the emergency room. It may be that her altered mental status is from a low blood sugar that had recovered by the time she came to the ER or from the UTI Regardless revealing that the patient go home she's going to take by mouth antibiotics for several more days Thank you very much, Amandeep Blackwell
[2016-09-21] MEDS ORDERED: cefTRIAXone IV 1 gm in Dextros 50 ML IVPB SCH (22:00)
== END 2016-09-21 19:50 | disposition home or self-care (01) ==
LOC: C.ER 20:07 → C.9E 23:57 → C.6T 09-21 01:04
PROVIDERS: ADMIT Hospitalist; ATTEND Hospitalist
DX: N39.0 Urinary tract infection, site not specified (principal); E78.00 Pure hypercholesterolemia, unspecified; E78.5 Hyperlipidemia, unspecified; F41.9 Anxiety disorder, unspecified; G47.00 Insomnia, unspecified; G89.29 Other chronic pain; I10 Essential (primary) hypertension; Z95.5 Presence of coronary angioplasty implant and graft; I25.10 Atherosclerotic heart disease of native coronary artery without angina pectoris; B19.20 Unspecified viral hepatitis C without hepatic coma; E11.65 Type 2 diabetes mellitus with hyperglycemia; E11.42 Type 2 diabetes mellitus with diabetic polyneuropathy; Z79.4 Long term (current) use of insulin
CPT/HCPCS: 36415; 70450; 71010; 80053; 80320; 80324; 80329; 80345; 80346; 80349; 80353; 80358; 80361; 81001; 82009; 82803; 82948; 83992; 84703; 85025; 85610; 85730; 87086; 96361; 96374; 96375; 96376; 97116; 97162; G0378; G8978; G8979; J0696; J1644; J2310; J7040

== ENCOUNTER 2016-11-05 20:57 | Observation (INO) | payer OTHER ==
--- NOTE | 2016-11-05 21:36 | C.PDOC ---
History Of Present Illness Patient presents to the ER with a complaint of bilateral lower extremity edema worsening over the last week. Patient has ran out of her medications and presented with a blood sugar level >500. Patient denies fever, chills, nausea, vomiting or SOB. Time Seen by Provider: 11/05/16 21:36 Chief Complaint (Nursing): Lower Extremity Problem/Injury History Per: Patient History/Exam Limitations: no limitations Onset/Duration Of Symptoms: Days (7) Current Symptoms Are (Timing): Still Present Severity: None Pain Scale Rating Of: 0 Recent travel outside of the [place] States: No Additional History Per: Patient Past Medical History Reviewed: Historical Data, Nursing Documentation, Vital Signs Vital Signs: Last Vital Signs Temp 98.2 F 11/06/16 00:30 Pulse 79 11/06/16 00:30 Resp 16 11/06/16 00:30 BP 129/78 11/06/16 00:30 Pulse Ox 96 11/06/16 01:03 - Medical History PMH: Back Problems, Bipolar Disorder, CAD, Diabetes, Deep Vein Thrombosis, HTN, Hypercholesterolemia, Schizophrenia Surgical History: Coronary Stent - [facility] Procedures INSERTION OF ENDOTRACHEAL AIRWAY INTO TRACHEA, VIA OPENING (06/09/16) INSERTION OF INFUSION DEV INTO SUP VENA CAVA, PERC APPROACH (06/09/16) RESPIRATORY VENTILATION, LESS THAN 24 CONSECUTIVE HOURS (06/09/16) Family History: States: No Known Family Hx - Social History Hx Tobacco Use: No Hx Alcohol Use: No Hx Substance Use: No - Immunization History Hx Tetanus Toxoid Vaccination: No Hx Influenza Vaccination: No Hx Pneumococcal Vaccination: No Review Of Systems Constitutional: Negative for: Fever, Chills Eyes: Negative for: Vision Change ENT: Negative for: Throat Pain Cardiovascular: Negative for: Chest Pain Respiratory: Negative for: Shortness of Breath Gastrointestinal: Negative for: Nausea, Vomiting Genitourinary: Negative for: Dysuria Musculoskeletal: Positive for: Other (Bilateral lower extremity edema) Skin: Negative for: Rash, Lesions Neurological: Negative for: Weakness Psych: Negative for: Anxiety Physical Exam - Physical Exam Appears: Non-toxic Skin: Warm, Dry Head: Normacephalic Oral Mucosa: Moist Neck: Supple Chest: Symmetrical, No Tenderness Cardiovascular: Rhythm Regular, No Murmur Respiratory: No Rales, No Rhonchi, No Wheezing Gastrointestinal/Abdominal: Soft, No Tenderness, Distention, Other (Obese. Tympanic to percussion.) Extremity: Pedal Edema (Bilateral, trace.) Extremity: Bilateral: Atraumatic Pulses: Left Dorsalis Pedis: Normal, Right Dorsalis Pedis: Normal Neurological/Psych: Oriented x3, Normal Speech, Normal Cognition Gait: Steady ED Course And Treatment - Laboratory Results Result Diagrams: 11/05/16 22:19 11/05/16 22:19 O2 Sat by Pulse Oximetry: 96 (Room air) Pulse Ox Interpretation: Normal Progress Note: Blood work and urinalysis ordered. Reevaluation Time: 03:14 Reassessment Condition: Improved Critical Care Time - Critical Care Note Total Time (in mins): 30 Documented critical care: time excludes all time spent performing seperately billable procedures. ED OBSERVATION Discharge: Yes Date of observation admission: 11/06/16 Time of observation admission: 01:03 - Progress Note Progress Note: 11/06/16 01:03 vitals stable., repeat acc 420 10 u insulin iv and nss given 11/06/16 03:14 repeat accucheck 84 Disposition Counseled Patient/Family Regarding: Studies Performed, Diagnosis, Need For Followup - Disposition Disposition: HOME/ ROUTINE Disposition Time: 21:36 Condition: FAIR - Clinical Impression Clinical Impression: Hyperglycemia - Scribe Statement The provider has reviewed the documentation as recorded by the Scribdandre Angelo All medical record entries made by the Letitiaibdandre were at my direction and personally dictated by me. I have reviewed the chart and agree that the record accurately reflects my personal performance of the history, physical exam, medical decision making, and the department course for this patient. I have also personally directed, reviewed, and agree with the discharge instructions and disposition.
[2016-11-05 22:27] LABS: NRBC % 0.1 % (0.0-2.0)
[2016-11-05 22:30] LABS: BASO # 0.1 K/uL (0.0-0.2); BASO % 0.9 % (0.0-2.0); EOS # 0.2 K/uL (0.0-0.7); HEMATOCRIT 40.1 % (34.0-47.0); LYMPH # 1.9 K/uL (1.0-4.3); LYMPH % 22.3 % (20.0-40.0); MEAN CELL VOLUME 86.1 fL (81.0-99.0); MEAN CORPUSCULAR HEMOGLOBIN 28.1 pg (27.0-31.0); MEAN CORPUSCULAR HGB CONC 32.6 g/dL (33.0-37.0); MEAN PLATELET VOLUME 9.3 fL (7.2-11.7); MONO # 0.3 K/uL (0.0-0.8); MONO % 4.1 % (0.0-10.0); RED CELL DISTRIBUTION WIDTH 13.5 % (11.5-14.5); WHITE BLOOD COUNT 8.4 K/uL (4.8-10.8)
[2016-11-05 22:32] LABS: CHLORIDE 100 mmol/L (98-107); SODIUM 131 mmol/L (132-148)
[2016-11-05 22:34] LABS: ALB/GLOB RATIO 1.1 (1.0-2.1); ALKALINE PHOSPHATASE 167 U/L (38-126); AST/SGOT 31 U/L (14-36); BILIRUBIN,TOTAL 0.8 mg/dL (0.2-1.3); CARBON DIOXIDE 19 mmol/L (22-30); GFR AFRICAN-AMERICAN 52; TOTAL PROTEIN 6.4 g/dL (6.3-8.3)
[2016-11-05 22:35] LABS: ALT/SGPT 26 U/L (9-52); BLOOD UREA NITROGEN 30 mg/dL (7-17); CALCIUM 7.9 mg/dl (8.6-10.4)
[2016-11-05 22:37] LABS: GLUCOSE,RANDOM 580 mg/dL (65-105)
[2016-11-05] MEDS ORDERED: (Novolin R) Insulin Human Regular 100 units/ml vial SC ONE (22:38)
[2016-11-05] MEDS ORDERED: Sodium Chloride 0.9% 1,000 ML IV ONE (22:39)
[2016-11-05] MEDS ORDERED: (Novolin R) Insulin Human Regular 100 units/ml vial ONE (22:42)
[2016-11-05] MEDS ORDERED: Sodium Chloride 0.9% 1,000 ML ONE (22:44)
[2016-11-05 23:01] LABS: VENOUS BLOOD GAS BASE EXCESS -0.7 mmol/L (0.0-2.0); VENOUS BLOOD GAS PCO2 54 mmHg (40-60)
[2016-11-06] MEDS ORDERED: Sodium Chloride 0.9% 1,000 ML IV ONE (01:01)
[2016-11-06] MEDS ORDERED: (Novolin R) Insulin Human Regular 100 units/ml vial IV ONE (01:01)
[2016-11-06] MEDS ORDERED: Sodium Chloride 0.9% 1,000 ML ONE (01:36)
[2016-11-06] MEDS ORDERED: (Novolin R) Insulin Human Regular 100 units/ml vial ONE (01:37)
[2016-11-06 04:04] VITALS: BP 122/45; PULSE 87; RESP 20; TEMP 98.6; O2SAT 97
== END 2016-11-06 03:17 | disposition home or self-care (01) ==
LOC: C.ER 20:57 → C.9OBSV 11-06 01:02
PROVIDERS: ADMIT Emergency Medicine; ATTEND Emergency Medicine
DX: E11.65 Type 2 diabetes mellitus with hyperglycemia (principal); E78.00 Pure hypercholesterolemia, unspecified; F31.9 Bipolar disorder, unspecified; I10 Essential (primary) hypertension; I25.10 Atherosclerotic heart disease of native coronary artery without angina pectoris; Z95.5 Presence of coronary angioplasty implant and graft; R60.0 Localized edema; Z79.4 Long term (current) use of insulin
CPT/HCPCS: 80053; 82009; 82803; 82948; 83690; 85025; 96360; 96372; 99285; G0378; J7040

== ENCOUNTER 2016-11-24 15:32 | Observation (INO) | payer OTHER ==
[2016-11-24 15:44] VITALS: RESP 18
[2016-11-24] MEDS ORDERED: Sodium Chloride 0.9% 1,000 ML IV ONE ×2 (16:06→19:12)
--- NOTE | 2016-11-24 16:08 | C.PDOC ---
History Of Present Illness 51 year old patient, with a past medical history of non-insulin dependent diabetes, presents to the ED for evaluation of dizziness and tremors that began just prior to arrival. Patient also complains of a rash on her right breast since this morning. Patient has been non-compliant with her diabetes medications. She denies fever, chills, abdominal pain, nausea or vomiting. Time Seen by Provider: 11/24/16 16:05 Chief Complaint (Nursing): Abnormal Skin Integrity History Per: Patient History/Exam Limitations: no limitations Onset/Duration Of Symptoms: Mins (prior to arrival) Current Symptoms Are (Timing): Still Present Severity: Mild Pain Scale Rating Of: 3 Recent travel outside of the [place]: No Past Medical History Reviewed: Historical Data, Nursing Documentation, Vital Signs Vital Signs: Last Vital Signs Temp 97.9 F 11/24/16 15:37 Pulse 73 11/24/16 15:37 Resp 18 11/24/16 15:37 BP 125/71 11/24/16 15:37 Pulse Ox 95 11/24/16 21:36 - Medical History PMH: Back Problems, Bipolar Disorder, CAD, Diabetes, Deep Vein Thrombosis, HTN, Hypercholesterolemia (RIGHT LEG), Schizophrenia Surgical History: Coronary Stent - [facility] Procedures INSERTION OF ENDOTRACHEAL AIRWAY INTO TRACHEA, VIA OPENING (06/09/16) INSERTION OF INFUSION DEV INTO SUP VENA CAVA, PERC APPROACH (06/09/16) RESPIRATORY VENTILATION, LESS THAN 24 CONSECUTIVE HOURS (06/09/16) Family History: States: Unknown Family Hx - Social History Hx Tobacco Use: No Hx Alcohol Use: No Hx Substance Use: No - Immunization History Hx Tetanus Toxoid Vaccination: No Hx Influenza Vaccination: No Hx Pneumococcal Vaccination: No Review Of Systems Except As Marked, All Systems Reviewed And Found Negative. Constitutional: Negative for: Fever, Chills Gastrointestinal: Negative for: Nausea, Vomiting, Abdominal Pain Skin: Positive for: Rash (to right breast) Neurological: Positive for: Dizziness, Other (tremors) Physical Exam - Physical Exam Appears: Well, Non-toxic, No Acute Distress Skin: Normal Color, Warm, Dry, Rash (diffused erythema, edema under Right breast with abrasin and yellowish oozing. No proximal streaking.) Eye(s): bilateral: PERRL Nose: No Flaring, No Discharge Oral Mucosa: Moist, No Drooling Throat: Normal, No Erythema, No Exudate, No Drooling Neck: Supple Cardiovascular: Rhythm Regular Respiratory: No Decreased Breath Sounds, No Accessory Muscle Use, No Stridor, No Wheezing Gastrointestinal/Abdominal: Soft, No Tenderness, No Distention, No Guarding Back: No CVA Tenderness Extremity: No Pedal Edema, No Deformity Neurological/Psych: Oriented x3, Normal Speech ED Course And Treatment - Laboratory Results Result Diagrams: 11/24/16 16:47 11/24/16 16:21 O2 Sat by Pulse Oximetry: 95 (room air) Pulse Ox Interpretation: Normal ED OBSERVATION Discharge: Yes Date of observation admission: 11/24/16 Time of observation admission: 16:10 - Observation admission statement Patient is being placed in observation because:: Hyperglycemia, cellulitis, Hx of IDDM - Goals of Observation Goals of observation are:: Diagnostics, hydration with IVF, re-eval - Progress Note Progress Note: 11/24/16 At 17:37, pt resting comfortably in ED, not in any apparent distress. Afebriule, hemodynamicaly stable. Non-toxic. ABd: Benign. Neurologicaly intact. At 18:25 Repeat FSBS 356 Diagnostics review: CBC- normal study, no leukocytosis. CMP: electrolytes normal. AG 11. UA:(+) WBC, (+)Glu. Serum ketones (-). Hydration with IVF continue. Insulin 6U order. At 21:20, pt is afebrile, hemodynamicaly stable. Tolerate PO ( dinner tray) well in ED. Pt was hydrated with total 2l NS. ENT: no acute findings Lungs: CTA B/L, BS equal B/L. Abd: benign, (-) guarding, (-) rebound, (-) localized tenderness Skin: exam c/w cellulitis under Right breast r/o fungal infection. Back: (-) CVA tenderness. Pt admits, not compliant with all her medication " ran out of my medication few days ago". Pharm[facility] " [facility] called and list of medication obtained. Pt advised on course of ds. ref. to F/u with PMD in 2-3 days for re-eval. return to ED if any worsening or new changes. Disposition Counseled Patient/Family Regarding: Studies Performed, Diagnosis, Need For Followup, Rx Given - Disposition Disposition: HOME/ ROUTINE Disposition Time: 21:36 Condition: STABLE - Clinical Impression Clinical Impression: Hypoglycemia, Cellulitis, Medication refill - PA / EXECUTIVE ASSOCIATE / Resident Statement MD/DO has reviewed & agrees with the documentation as recorded. - Scribe Statement The provider has reviewed the documentation as recorded by the Scribe All medical record entries made by the Scribe were at my direction and personally dictated by me. I have reviewed the chart and agree that the record accurately reflects my personal performance of the history, physical exam, medical decision making, and the department course for this patient. I have also personally directed, reviewed, and agree with the discharge instructions and disposition.
[2016-11-24 16:42] LABS: CHLORIDE 99 mmol/L (98-107)
[2016-11-24 16:43] LABS: POTASSIUM 4.6 mmol/L (3.6-5.2); SODIUM 134 mmol/L (132-148)
[2016-11-24 16:45] LABS: AST/SGOT 44 U/L (14-36); BILIRUBIN,TOTAL 1.3 mg/dL (0.2-1.3); BLOOD UREA NITROGEN 26 mg/dL (7-17); CARBON DIOXIDE 24 mmol/L (22-30); GFR AFRICAN-AMERICAN > 60; TOTAL PROTEIN 7.3 g/dL (6.3-8.3)
[2016-11-24 16:46] LABS: ALKALINE PHOSPHATASE 102 U/L (38-126); ALT/SGPT 23 U/L (9-52); CALCIUM 9.7 mg/dl (8.6-10.4); GLUCOSE,RANDOM 357 mg/dL (65-105)
[2016-11-24 16:57] LABS: BASO # 0.1 K/uL (0.0-0.2); BASO % 1.2 % (0.0-2.0); EOS # 0.2 K/uL (0.0-0.7); EOS % 2.1 % (0.0-4.0); HEMATOCRIT 40.5 % (34.0-47.0); LYMPH # 1.9 K/uL (1.0-4.3); LYMPH % 19.7 % (20.0-40.0); MEAN CORPUSCULAR HEMOGLOBIN 28.1 pg (27.0-31.0); MEAN CORPUSCULAR HGB CONC 33.9 g/dL (33.0-37.0); MEAN PLATELET VOLUME 8.7 fL (7.2-11.7); MONO # 0.4 K/uL (0.0-0.8); NRBC % 0.1 % (0.0-2.0); RED CELL DISTRIBUTION WIDTH 13.4 % (11.5-14.5); WHITE BLOOD COUNT 9.4 K/uL (4.8-10.8)
[2016-11-24 16:58] LABS: MEAN CELL VOLUME 82.7 fL (81.0-99.0)
[2016-11-24 17:31] LABS: RBC URINE 3 /hpf (0-3); URINE BACTERIA FEW (<OCC); URINE BILIRUBIN NEGATIVE (NEGATIVE); URINE BLOOD NEGATIVE (NEGATIVE); URINE COLOR Yellow (YELLOW); URINE GLUCOSE (UA) 3+ mg/dL (Normal); URINE KETONE 1+ mg/dL (NEGATIVE); URINE LEUKOCYTE ESTERASE 2+ Leu/uL (Negative); URINE PROTEIN NEGATIVE (NEGATIVE); URINE UROBILINOGEN NORMAL mg/dL (0.2-1.0); WBC URINE 15 /hpf (0-5)
[2016-11-24] MEDS ORDERED: Sodium Chloride 0.9% 1,000 ML ONE ×2 (17:45→19:49)
[2016-11-24] MEDS ORDERED: cefTRIAXone IV 1 gm in Dextros 50 ML IVPB ONE (17:51)
[2016-11-24] MEDS ORDERED: (Novolin R) Insulin Human Regular 100 units/ml vial IV ONE (18:26)
[2016-11-24] MEDS ORDERED: (Novolin R) Insulin Human Regular 100 units/ml vial ONE (18:33)
[2016-11-24 21:50] VITALS: BP 144/71; PULSE 72; TEMP 97.8; O2SAT 98
== END 2016-11-24 21:36 | disposition home or self-care (01) ==
LOC: C.ER 15:32 → C.9OBSV 16:10
PROVIDERS: ADMIT Emergency Medicine; ATTEND Emergency Medicine
DX: E11.649 Type 2 diabetes mellitus with hypoglycemia without coma (principal); L03.90 Cellulitis, unspecified; E78.00 Pure hypercholesterolemia, unspecified; F20.9 Schizophrenia, unspecified; F31.9 Bipolar disorder, unspecified; I10 Essential (primary) hypertension; I25.10 Atherosclerotic heart disease of native coronary artery without angina pectoris; Z91.19 Patient's noncompliance with other medical treatment and regimen; Z95.5 Presence of coronary angioplasty implant and graft; Z79.84 Long term (current) use of oral hypoglycemic drugs
CPT/HCPCS: 80053; 81001; 82009; 82948; 85025; 96360; 96365; G0378; J0696; J7040

== ENCOUNTER 2016-12-23 01:30 | Emergency (ER) | payer OTHER ==
[2016-12-23 02:03] VITALS: RESP 20
[2016-12-23] MEDS ORDERED: Sodium Chloride 0.9% 500 ML IV ONE (02:13)
[2016-12-23] MEDS ORDERED: Sodium Chloride 0.9% 1,000 ML ONE (02:16)
[2016-12-23 02:29] LABS: BASO # 0.1 K/uL (0.0-0.2); EOS # 0.3 K/uL (0.0-0.7); EOS % 2.5 % (0.0-4.0); HEMOGLOBIN 14.2 g/dL (11.0-16.0); LYMPH # 2.2 K/uL (1.0-4.3); LYMPH % 22.1 % (20.0-40.0); MEAN CELL VOLUME 83.6 fL (81.0-99.0); MEAN CORPUSCULAR HEMOGLOBIN 27.9 pg (27.0-31.0); MEAN CORPUSCULAR HGB CONC 33.3 g/dL (33.0-37.0); MEAN PLATELET VOLUME 9.2 fL (7.2-11.7); MONO # 0.3 K/uL (0.0-0.8); MONO % 3.1 % (0.0-10.0); NEUT # 7.2 K/uL (1.8-7.0); NEUT % 71.3 % (50.0-75.0); RBC 5.1 Mil/uL (3.80-5.20); RED CELL DISTRIBUTION WIDTH 13.7 % (11.5-14.5); WHITE BLOOD COUNT 10.1 K/uL (4.8-10.8)
[2016-12-23 02:52] LABS: ALBUMIN 4.6 g/dL (3.5-5.0)
[2016-12-23 02:56] LABS: ALB/GLOB RATIO 1.1 (1.0-2.1); CALCIUM 9.7 mg/dl (8.6-10.4)
--- NOTE | 2016-12-23 03:34 | C.PDOC ---
History Of Present Illness 51 year old female who presents to the ER with a complaint of vomiting since yesterday. Denies abdominal pain, diarrhea, fever, sick contact, or recent travel. Time Seen by Provider: 12/23/16 02:04 Chief Complaint (Nursing): Abdominal Pain History Per: Patient History/Exam Limitations: no limitations Onset/Duration Of Symptoms: Days Current Symptoms Are (Timing): Still Present Associated Symptoms: Vomiting. denies: Fever, Chills, Diarrhea Exacerbating Factors: None Alleviating Factors: None Recent travel outside of the [place]: No Abnormal Vaginal Bleeding: No Past Medical History Reviewed: Historical Data, Nursing Documentation, Vital Signs Vital Signs: Last Vital Signs Temp 97.8 F 12/23/16 04:17 Pulse 76 12/23/16 04:17 Resp 20 12/23/16 04:17 BP 124/82 12/23/16 04:17 Pulse Ox 100 12/23/16 04:48 - Medical History PMH: Back Problems, Bipolar Disorder, CAD, Diabetes, Deep Vein Thrombosis, HTN, Hypercholesterolemia (RIGHT LEG), Schizophrenia Surgical History: Coronary Stent - [facility] Procedures INSERTION OF ENDOTRACHEAL AIRWAY INTO TRACHEA, VIA OPENING (06/09/16) INSERTION OF INFUSION DEV INTO SUP VENA CAVA, PERC APPROACH (06/09/16) RESPIRATORY VENTILATION, LESS THAN 24 CONSECUTIVE HOURS (06/09/16) Family History: States: Unknown Family Hx - Social History Hx Tobacco Use: No Hx Alcohol Use: No Hx Substance Use: No - Immunization History Hx Tetanus Toxoid Vaccination: No Hx Influenza Vaccination: No Hx Pneumococcal Vaccination: No Review Of Systems Constitutional: Negative for: Fever, Chills Gastrointestinal: Positive for: Vomiting. Negative for: Abdominal Pain, Diarrhea Physical Exam - Physical Exam Appears: Non-toxic Skin: Normal Color, Warm, Dry Head: Atraumatic, Normacephalic Oral Mucosa: Moist Chest: Symmetrical, No Tenderness Cardiovascular: Rhythm Regular, No Murmur Respiratory: Normal Breath Sounds, No Rales, No Rhonchi, No Wheezing Gastrointestinal/Abdominal: Soft, No Tenderness, Other (Obese) Neurological/Psych: Oriented x3, Normal Speech, Normal Cognition ED Course And Treatment - Laboratory Results Result Diagrams: 12/23/16 02:26 12/23/16 04:16 O2 Sat by Pulse Oximetry: 100 (Room air) Pulse Ox Interpretation: Normal Progress Note: Zofran and IV fluids administered. Labs ordered. Prt sleeping in stretcher comfortably in NAD, abdomen remais soft , nontender. Pt now tolerating PO. 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 Pt will follow up with PMD Reevaluation Time: 04:31 Reassessment Condition: Improved Disposition - Disposition Referrals: Clinic,Med Surg [Primary Care Provider] - Disposition: HOME/ ROUTINE Disposition Time: 04:45 Condition: STABLE Additional Instructions: Take zofran as needed or vomiting LIQUID DIET AND SOFT DIET NO SOLIDS, DAIRY RETURN TO er IF A Prescriptions: Ondansetron [Zofran Odt] 4 mg PO TID #7 odt Instructions: Vomiting in Children (ED) - Clinical Impression Clinical Impression: Vomiting - Scribe Statement The provider has reviewed the documentation as recorded by the Scribdandre Angelo All medical record entries made by the Letitiaibdandre were at my direction and personally dictated by me. I have reviewed the chart and agree that the record accurately reflects my personal performance of the history, physical exam, medical decision making, and the department course for this patient. I have also personally directed, reviewed, and agree with the discharge instructions and disposition.
[2016-12-23 04:18] VITALS: BP 124/82; PULSE 76; TEMP 97.8
[2016-12-23 04:21] LABS: ALBUMIN 3.7 g/dL (3.5-5.0)
[2016-12-23 04:24] LABS: CALCIUM 8.8 mg/dl (8.6-10.4)
[2016-12-23 04:48] VITALS: O2SAT 100
== END 2016-12-23 05:00 | disposition home or self-care (01) ==
LOC: C.ER 01:30 → SUPCPDRO 01:30 → C.ER 05:00
DX: R11.10 Vomiting, unspecified (principal)
CPT/HCPCS: 80053; 83690; 85025; 96361; 96374; 99285; J2405; J7040

== ENCOUNTER 2017-12-04 10:03 | Emergency (ER) | payer OTHER ==
[2017-12-04 10:04] VITALS: BMI 43.0
[2017-12-04] MEDS ORDERED: Sodium Chloride 0.9% 1,000 ML IV ONE ×2 (10:29→11:51)
[2017-12-04] MEDS ORDERED: Sodium Chloride 0.9% 1,000 ML ONE ×2 (10:42→15:28)
[2017-12-04 11:21] LABS: BARBITURATES, UR NEGATIVE (NEGATIVE); BENZODIAZEPINES, UR NEGATIVE (NEGATIVE); OPIATES, UR NEGATIVE (NEGATIVE); PHENCYCLIDINE, UR NEGATIVE (NEGATIVE)
[2017-12-04 11:26] LABS: BASO # 0.1 K/uL (0.0-0.2); BASO % 1.2 % (0.0-2.0); EOS # 0.2 K/uL (0.0-0.7); EOS % 1.9 % (0.0-4.0); HEMOGLOBIN 12.8 g/dL (11.0-16.0); LYMPH # 2.8 K/uL (1.0-4.3); LYMPH % 26.5 % (20.0-40.0); MEAN CELL VOLUME 83.2 fL (81.0-99.0); MEAN CORPUSCULAR HEMOGLOBIN 28.5 pg (27.0-31.0); MEAN CORPUSCULAR HGB CONC 34.2 g/dL (33.0-37.0); MEAN PLATELET VOLUME 8.9 fL (7.2-11.7); MONO # 0.5 K/uL (0.0-0.8); MONO % 4.8 % (0.0-10.0); NEUT % 65.6 % (50.0-75.0); RBC 4.5 Mil/uL (3.80-5.20); RED CELL DISTRIBUTION WIDTH 13.3 % (11.5-14.5); WHITE BLOOD COUNT 10.7 K/uL (4.8-10.8)
--- NOTE | 2017-12-04 11:27 | RAD ---
HISTORY: dyspnea COMPARISON: Comparison made with prior chest radiograph dated 09/20/2016. The head TECHNIQUE: Chest PA and lateral FINDINGS: LUNGS: Previously suspected venous congestive changes with apparently resolved however the interstitial markings are slightly increased and coarsened. Rule out sequela of reactive/ inflammatory airway disease or viral illness. PLEURA: No significant pleural effusion identified. No pneumothorax apparent. CARDIOVASCULAR: Normal. OSSEOUS STRUCTURES: No significant abnormalities. VISUALIZED UPPER ABDOMEN: Normal. OTHER FINDINGS: None. IMPRESSION: Previously suspected venous congestive changes with apparently resolved however the interstitial markings are slightly increased and coarsened. Rule out sequela of reactive/ inflammatory airway disease or viral illness.
[2017-12-04 11:34] LABS: PROTHROMBIN TIME 10.8 SECONDS (9.7-12.2)
[2017-12-04 11:40] LABS: ALB/GLOB RATIO 1.3 (1.0-2.1); ALBUMIN 3.9 g/dL (3.5-5.0)
--- NOTE | 2017-12-04 11:49 | C.PDOC ---
History Of Present Illness 52 yo female w/PMHx of NIDDM, diabetic neuropathy, bipolar ds, HTN come in c/o " my both legs are swollen and hurts". Pt admits, non-complaint with medication , last dose of " all my medication was 6 months ago". AT present time, pt is very poor historian, racing thoughts, " my brother today", unable to provide more info on present illness. Ambulatory, not in any apparent distress. Time Seen by Provider: 12/04/17 10:05 Chief Complaint (Nursing): Lower Extremity Problem/Injury History Per: Patient Past Medical History Reviewed: Historical Data, Nursing Documentation, Vital Signs Vital Signs: Last Vital Signs Temp 98.3 F 12/04/17 15:30 Pulse 88 12/04/17 15:30 Resp 20 12/04/17 15:30 BP 133/86 12/04/17 15:30 Pulse Ox 97 12/04/17 15:30 - Medical History PMH: Back Problems, Bipolar Disorder, CAD, Diabetes, Deep Vein Thrombosis, HTN, Hypercholesterolemia (RIGHT LEG), Schizophrenia Denies: Chronic Kidney Disease Surgical History: Coronary Stent - [facility] Procedures INSERTION OF ENDOTRACHEAL AIRWAY INTO TRACHEA, VIA OPENING (06/09/16) INSERTION OF INFUSION DEV INTO SUP VENA CAVA, PERC APPROACH (06/09/16) RESPIRATORY VENTILATION, LESS THAN 24 CONSECUTIVE HOURS (06/09/16) Family History: States: Unknown Family Hx - Social History Hx Tobacco Use: No Hx Alcohol Use: No Hx Substance Use: No - Immunization History Hx Tetanus Toxoid Vaccination: No Hx Influenza Vaccination: No Hx Pneumococcal Vaccination: No Review Of Systems Except As Marked, All Systems Reviewed And Found Negative. Musculoskeletal: Positive for: Foot Pain (B/L) Neurological: Negative for: Weakness, Numbness Psych: Positive for: Psychosis Physical Exam - Physical Exam Appears: Well, Non-toxic, No Acute Distress Skin: Normal Color, Warm, Dry Head: Atraumatic, Normacephalic Eye(s): bilateral: PERRL Nose: No Flaring, No Discharge Oral Mucosa: Moist, No Drooling Tongue: Normal Appearing Lips: Normal Appearing Throat: No Drooling Neck: Normal ROM, Trachea Midline, Supple Chest: Symmetrical Cardiovascular: Rhythm Regular, No Murmur, No JVD, Other ((-) carotid bruits B/L ) Respiratory: No Decreased Breath Sounds, No Accessory Muscle Use, No Stridor, No Wheezing Gastrointestinal/Abdominal: Soft, No Tenderness, No Distention, No Guarding Back: No CVA Tenderness Extremity: Normal ROM, No Pedal Edema, No Deformity, Swelling (R>L dorsal edema to foot with mild erythema.) Neurological/Psych: Oriented x3, Normal Speech, Normal Motor, Normal Sensation, Normal Reflexes ED Course And Treatment - Laboratory Results Result Diagrams: 12/04/17 11:21 12/04/17 11:21 ECG: Interpreted By Me, Viewed By Me ECG Rhythm: Sinus Rhythm Interpretation Of ECG: SR@76/min,NAD, no acute T wave or ST-T changes. O2 Sat by Pulse Oximetry: 98 Pulse Ox Interpretation: Normal - Other Rad CXR X-Ray: Read By Radiologist Interpretation: IMPRESSION: Previously suspected venous congestive changes with apparently resolved however the interstitial markings are slightly increased and coarsened. Rule out sequela of reactive/ inflammatory airway disease or viral illness. Progress Note: Pt was OBS in ED for 4 hours and remained stable. On re-eval, pt is AAO#3, reports " feels much better", not in any apparent distress. Afebrile, hemodynamicaly stable, non-toxic. PulseOx 98% RA. ENT: no acute findings. neck: SUpple, (-) meningeal sign, (-) carotid bruits B/L. Lungs: CTA B/L, BS equal B/L. Abd: benign, (-) guarding, (-) rebound. back: (-) CVA tenderness. Right foot: mild dorsal edema and erythema. No proximal streaking. FAROM, no neurovascular deficits. Neurologicaly intact. Blood work review, mild hypoglycemia noted. Ketones negative, VBG- normal study. CXR, EKG- normal study. Case ws discussed with PES, pt was evaluated and case discussed with psych . Pt was psychiatricly cleared and discharge with outpt f/u recommend. Pt has clinical finidngs c/w hyperglycemia, NIDDM, Right foot cellulitis. Bipolar ds. Pt advised. ref. to F/u with PMD in 1-2 days for re- evaluation. return to Ed if any worsening ro new changes. Disposition Counseled Patient/Family Regarding: Studies Performed, Diagnosis, Need For Followup, Rx Given - Disposition Referrals: Jamilah Dutton MD [Staff Provider] - Disposition: HOME/ ROUTINE Disposition Time: 14:01 Condition: STABLE Additional Instructions: Encourage fluids Take medication as prescribed Follow up with PMD, Psychiatrist in 2-3 days for re-evaluation. return to ED if any worsening ro new changes. Prescriptions: Gabapentin [Neurontin] 300 mg PO TID #20 cap Lisinopril [Prinivil] 5 mg PO DAILY #30 tablet MetFORMIN [glucoPHAGE] 1,000 mg PO BID #60 tab Sulfamethoxazole/Trimethoprim [Bactrim DS 800 mg-160 mg] 1 tab PO BID #14 tab Instructions: Hyperglycemia, Adult (DC), Diabetes Type 2 (DC), Cellulitis ( Skin Infection), Adult (DC) Forms: [employer] (Icelandic) - Clinical Impression Clinical Impression: Diabetes mellitus, Hyperglycemia, Cellulitis, Bipolar 2 disorder
[2017-12-04 12:09] LABS: ARTERIAL BLOOD GAS HCO3 25.3 mmol/L (21-28); ARTERIAL BLOOD GAS PCO2 37 mm/Hg (35-45); ARTERIAL BLOOD GAS PH 7.43 (7.35-7.45); ARTERIAL BLOOD GAS PO2 74 mm/Hg (80-100); ARTERIAL BLOOD GAS TCO2 25.7 mmol/L (22-28)
[2017-12-04 13:58] LABS: SQUAMOUS EPITHIAL 3 /hpf (0-5); URINE BILIRUBIN NEGATIVE (NEGATIVE); URINE BLOOD NEGATIVE (NEGATIVE); URINE CLARITY Clear (Clear); URINE COLOR Yellow (YELLOW); URINE GLUCOSE (UA) 3+ mg/dL (Normal); URINE LEUKOCYTE ESTERASE NEG Leu/uL (Negative); URINE PROTEIN 2+ mg/dL (NEGATIVE); URINE UROBILINOGEN NORMAL mg/dL (0.2-1.0)
[2017-12-04] MEDS ORDERED: (Novolin R) Insulin Human Regular 100 units/ml vial IV ONE (14:41)
[2017-12-04] MEDS ORDERED: (Novolin R) Insulin Human Regular 100 units/ml vial ONE (14:56)
[2017-12-04 15:31] VITALS: BP 133/86; PULSE 88; RESP 20; TEMP 98.3
[2017-12-04 17:00] VITALS: O2SAT 98
--- NOTE | 2017-12-05 20:01 | CARD ---
APPROVED REPORT EKG Measurement Heart [id number] <Conclusion> Normal sinus rhythm Possible Left atrial enlargement Borderline ECG
== END 2017-12-04 15:40 | disposition home or self-care (01) ==
LOC: C.ER 10:03
DX: E11.65 Type 2 diabetes mellitus with hyperglycemia (principal); L03.115 Cellulitis of right lower limb; F31.81 Bipolar II disorder; Z91.14 Patient's other noncompliance with medication regimen
CPT/HCPCS: 36600; 71046; 80053; 80324; 80345; 80346; 80349; 80353; 80358; 80361; 81001; 82803; 82948; 83992; 85025; 85610; 85730; 87040; 87086; 87181; 93005; 96361; 96374; 99285; J7030

== ENCOUNTER 2018-03-09 17:59 | Emergency (ER) | payer OTHER ==
[2018-03-09 18:00] VITALS: BMI 43.0
[2018-03-09] MEDS ORDERED: Sodium Chloride 0.9% 1,000 ML IV ONE (18:58)
--- NOTE | 2018-03-09 19:24 | C.PDOC ---
History Of Present Illness 53 year old female presents to the ER with a complaint of nausea and vomiting x4 that began today associated with loose stools. Denies eating new foods, junk foods, Hx of abdominal surgeries or biliary colic. Time Seen by Provider: 03/09/18 18:33 Chief Complaint (Nursing): Abdominal Pain History Per: Patient History/Exam Limitations: no limitations Onset/Duration Of Symptoms: Hrs Current Symptoms Are (Timing): Still Present Location Of Pain/Discomfort: Epigastric Radiation Of Pain To:: None Quality Of Discomfort: Unable To Describe Associated Symptoms: Nausea, Vomiting, Diarrhea. denies: Fever, Chills Exacerbating Factors: None Alleviating Factors: None Recent travel outside of the [place]: No Abnormal Vaginal Bleeding: No Past Medical History Reviewed: Historical Data, Nursing Documentation, Vital Signs Vital Signs: Last Vital Signs Temp 98.6 F 03/09/18 18:06 Pulse 74 03/09/18 18:06 Resp 19 03/09/18 18:06 BP 162/87 H 03/09/18 18:06 Pulse Ox 99 03/09/18 18:06 - Medical History PMH: Back Problems, Bipolar Disorder, CAD, Diabetes, Deep Vein Thrombosis, HTN, Hypercholesterolemia (RIGHT LEG), Schizophrenia Denies: Chronic Kidney Disease Surgical History: Coronary Stent - [facility] Procedures INSERTION OF ENDOTRACHEAL AIRWAY INTO TRACHEA, VIA OPENING (06/09/16) INSERTION OF INFUSION DEV INTO SUP VENA CAVA, PERC APPROACH (06/09/16) RESPIRATORY VENTILATION, LESS THAN 24 CONSECUTIVE HOURS (06/09/16) Family History: States: Unknown Family Hx - Social History Hx Tobacco Use: No Hx Alcohol Use: No Hx Substance Use: No - Immunization History Hx Tetanus Toxoid Vaccination: No Hx Influenza Vaccination: No Hx Pneumococcal Vaccination: No Review Of Systems Constitutional: Negative for: Fever, Chills Cardiovascular: Negative for: Chest Pain, Palpitations Respiratory: Negative for: Cough, Shortness of Breath Gastrointestinal: Positive for: Nausea, Vomiting, Abdominal Pain, Diarrhea Genitourinary: Negative for: Dysuria, Hematuria Neurological: Negative for: Weakness, Numbness Physical Exam - Physical Exam Appears: Non-toxic, Other (Morbidly obese) Skin: Normal Color, Warm, Dry Head: Atraumatic, Normacephalic Eye(s): bilateral: Normal Inspection Oral Mucosa: Moist Neck: Normal, Supple Chest: Symmetrical, No Tenderness Cardiovascular: Rhythm Regular Respiratory: Normal Breath Sounds, No Rales, No Rhonchi, No Wheezing Gastrointestinal/Abdominal: Soft, Tenderness (Epigastric), No Guarding, No Rebound Back: No CVA Tenderness Extremity: Normal ROM (x4) Neurological/Psych: Oriented x3, Normal Speech ED Course And Treatment - Laboratory Results Lab Interpretation: Normal (down time labs and trop reviewed, neg. UA neg.) O2 Sat by Pulse Oximetry: 99 (Room air) Pulse Ox Interpretation: Normal Reevaluation Time: 21:42 Reassessment Condition: Improved (feels hungry, wants a sandwich) Medical Decision Making Medical Decision Making: acute n/v, prob NOT biliary colic nor atypical ACS Disposition Doctor Will See Patient In The: Office Counseled Patient/Family Regarding: Studies Performed, Diagnosis - Disposition Disposition: HOME/ ROUTINE Disposition Time: 21:42 Condition: GOOD Forms: [facility] (Yoruba) - Clinical Impression Clinical Impression: Vomiting - Scribe Statement The provider has reviewed the documentation as recorded by the Scribdandre Angelo All medical record entries made by the Letitiaibdandre were at my direction and personally dictated by me. I have reviewed the chart and agree that the record accurately reflects my personal performance of the history, physical exam, medical decision making, and the department course for this patient. I have also personally directed, reviewed, and agree with the discharge instructions and disposition.
[2018-03-09] MEDS ORDERED: Sodium Chloride 0.9% 1,000 ML ONE (20:06)
[2018-03-09 20:13] LABS: BASO % 0.5 % (0.0-2.0); EOS # 0.2 K/uL (0.0-0.7); EOS % 2.4 % (0.0-4.0); HEMOGLOBIN 13.5 g/dL (11.0-16.0); LYMPH # 2.1 K/uL (1.0-4.3); LYMPH % 23.6 % (20.0-40.0); MEAN CELL VOLUME 85.2 fL (81.0-99.0); MEAN CORPUSCULAR HEMOGLOBIN 29.3 pg (27.0-31.0); MEAN CORPUSCULAR HGB CONC 34.4 g/dL (33.0-37.0); MEAN PLATELET VOLUME 8.2 fL (7.2-11.7); MONO # 0.4 K/uL (0.0-0.8); MONO % 3.9 % (0.0-10.0); NEUT # 6.3 K/uL (1.8-7.0); NEUT % 69.6 % (50.0-75.0); NRBC % 0.4 % (0.0-2.0); RBC 4.61 Mil/uL (3.80-5.20); RED CELL DISTRIBUTION WIDTH 13.7 % (11.5-14.5); WHITE BLOOD COUNT 9.1 K/uL (4.8-10.8)
[2018-03-09 21:55] VITALS: BP 147/78; PULSE 64; RESP 18; TEMP 98.1; O2SAT 100
[2018-03-09 22:09] LABS: ALB/GLOB RATIO 1.2 (1.0-2.1); ALBUMIN 3.7 g/dL (3.5-5.0); ALT/SGPT 35 U/L (9-52); AST/SGOT 33 U/L (14-36); BLOOD UREA NITROGEN 34 mg/dL (7-17); CALCIUM 9.8 mg/dl (8.6-10.4); GFR NON-AFRICAN AMERICAN 39
[2018-03-09 22:10] LABS: LIPASE 56 U/L (23-300)
--- NOTE | 2018-03-10 08:59 | RAD ---
Date of service: 03/09/2018 PROCEDURE: Radiographs of the chest and abdomen (obstructive series) HISTORY: Abdominal pain COMPARISON: No prior. TECHNIQUE: AP radiograph of the chest, with upright and supine radiographs of the abdomen. FINDINGS: CHEST: Lungs: The lungs are clear. Cardiovascular: Normal size heart. No pulmonary vascular congestion. Pleura: No pleural fluid. No pneumothorax. Other findings: None. ABDOMEN AND PELVIS: Bowel: There is moderate amount of stool in the colon. No evidence of mechanical obstruction. Free air: None. Bones: Unremarkable. Other findings: An IVC filter remains in place. IMPRESSION: Constipation. No evidence of bowel obstruction. Clear lungs.
== END 2018-03-09 22:11 | disposition home or self-care (01) ==
LOC: C.ER 17:59
DX: R11.10 Vomiting, unspecified (principal)
CPT/HCPCS: 74022; 80053; 83690; 84484; 85025; 96361; 96374; 96375; 99284; J1885; J2405; J7030

== ENCOUNTER 2018-05-09 17:02 | Inpatient (IN) | payer OTHER ==
[2018-05-09 17:03] VITALS: BMI 43.0
[2018-05-09] MEDS ORDERED: Sodium Chloride 0.9% 1,000 ML IV ONE (18:18)
[2018-05-09 18:19] LABS: BASO # 0.1 K/uL (0.0-0.2); BASO % 1.2 % (0.0-2.0); EOS # 0.3 K/uL (0.0-0.7); EOS % 3.2 % (0.0-4.0); HEMOGLOBIN 12.4 g/dL (11.0-16.0); LYMPH # 2.6 K/uL (1.0-4.3); LYMPH % 25.9 % (20.0-40.0); MEAN CELL VOLUME 86.4 fL (81.0-99.0); MEAN CORPUSCULAR HEMOGLOBIN 28.8 pg (27.0-31.0); MEAN CORPUSCULAR HGB CONC 33.3 g/dL (33.0-37.0); MEAN PLATELET VOLUME 9.2 fL (7.2-11.7); MONO # 0.4 K/uL (0.0-0.8); MONO % 4.1 % (0.0-10.0); NEUT # 6.6 K/uL (1.8-7.0); NEUT % 65.6 % (50.0-75.0); RBC 4.3 Mil/uL (3.80-5.20); RED CELL DISTRIBUTION WIDTH 12.6 % (11.5-14.5)
[2018-05-09 18:24] LABS: VENOUS BLOOD GAS BASE EXCESS -0.3 mmol/L (0.0-2.0); VENOUS BLOOD GAS PCO2 55 mmHg (40-60); VENOUS BLOOD GAS PO2 28 mm/Hg (30-55)
[2018-05-09 18:27] LABS: PROTHROMBIN TIME 10.8 SECONDS (9.7-12.2)
--- NOTE | 2018-05-09 18:27 | C.PDOC ---
History Of Present Illness 53 year old female with a history of diabetes, hypertension, thrombosis, bipolar disorder, and schizophrenia presents to the ED for evaluation of progressive abdominal discomfort, nausea, and nonbilious/nonbloody vomiting associated with diarrhea, and generalized weakness for 1 week. She reports running out of her diabetic and hypertension medication 1 week ago. Follows up at the Clinic. Denies polyuria, polydipsia, polyphagia, fever, chills, and any other associated symptoms. Time Seen by Provider: 05/09/18 17:30 Chief Complaint (Nursing): GI Problem History Per: Patient History/Exam Limitations: no limitations Onset/Duration Of Symptoms: Days Current Symptoms Are (Timing): Still Present Recent travel outside of the [place]: No Past Medical History Reviewed: Historical Data, Nursing Documentation, Vital Signs Vital Signs: Last Vital Signs Temp 97.8 F 05/09/18 17:10 Pulse 61 05/09/18 17:10 Resp 20 05/09/18 17:10 BP 94/62 L 05/09/18 17:10 Pulse Ox 97 05/09/18 17:10 - Medical History PMH: Back Problems, Bipolar Disorder, CAD, Diabetes, Deep Vein Thrombosis, HTN, Hypercholesterolemia (RIGHT LEG), Schizophrenia Denies: Chronic Kidney Disease Surgical History: Coronary Stent - [facility] Procedures INSERTION OF ENDOTRACHEAL AIRWAY INTO TRACHEA, VIA OPENING (06/09/16) INSERTION OF INFUSION DEV INTO SUP VENA CAVA, PERC APPROACH (06/09/16) RESPIRATORY VENTILATION, LESS THAN 24 CONSECUTIVE HOURS (06/09/16) Family History: States: Unknown Family Hx - Social History Hx Tobacco Use: No Hx Alcohol Use: No Hx Substance Use: No - Immunization History Hx Tetanus Toxoid Vaccination: No Hx Influenza Vaccination: No Hx Pneumococcal Vaccination: No Review Of Systems Except As Marked, All Systems Reviewed And Found Negative. (as per HPI.) Constitutional: Positive for: Weakness (generalized). Negative for: Fever, Chills Gastrointestinal: Positive for: Nausea, Vomiting, Abdominal Pain (discomfort. ), Diarrhea. Negative for: Other (polyuria, polydipsia, polyphagia.) Physical Exam - Physical Exam Appears: No Acute Distress Skin: Warm, Dry Head: Normacephalic, Tenderness Eye(s): bilateral: PERRL, EOMI Oral Mucosa: Moist Throat: No Erythema, No Exudate Neck: Normal ROM, Trachea Midline Lymphatic: No Adenopathy Chest: Symmetrical, No Tenderness Cardiovascular: Rhythm Regular, No Murmur Respiratory: Normal Breath Sounds, No Wheezing Gastrointestinal/Abdominal: Normal Exam, Soft, Tenderness, No Mass, No Distention, No Guarding, No Rebound, Other (obese abdomen. ) Back: Normal Inspection, No Decreased ROM Extremity: Normal ROM, No Deformity Neurological/Psych: Oriented x3, Normal Motor ED Course And Treatment - Laboratory Results Result Diagrams: 05/09/18 18:14 05/09/18 18:14 Lab Interpretation: Abnormal ECG Rhythm: Sinus Rhythm Interpretation Of ECG: Normal QRS. Normal ST segments Rate From EC O2 Sat by Pulse Oximetry: 97 (RA) Pulse Ox Interpretation: Normal Medical Decision Making Medical Decision Making: Impression: hyperglycemia. Plan: --Blood sent. --Urinalysis. Differentials included but are not limited to: DKA, electrolyte abnormalities, dehydration, hyperglycemia due to noncompliance. Right anticub peripheral: IV line placed by me under static ultrasound guided due to the nurses inability to place line. Performed under sterile conditions. Accucheck was over 500 in the ED. Labs demonstrate hyperglycemia, with mild acidosis without anion gap, and hyperkalemia (No findings on EKG c/w hyperkalemia) Insulin and fluids ordered. 7:33pm : Spoke with Hospitalist on-call Dr. Urias regarding the patient's case. Patient will be admitted. DW pt findings and plan of care. Disposition - Disposition Disposition: HOSPITALIZED Disposition Time: 19:00 Condition: GUARDED - POA Present On Arrival: Poor Glycemic Control - Clinical Impression Clinical Impression: Hyperglycemia, Hyperkalemia - PA / ACQUISITION ASSOCIATE / Resident Statement MD/DO has reviewed & agrees with the documentation as recorded. - Scribe Statement The provider has reviewed the documentation as recorded by the Scribe (Maya Ramos) Provider Attestation: All medical record entries made by the Scribe were at my direction and personally dictated by me. I have reviewed the chart and agree that the record accurately reflects my personal performance of the history, physical exam, medical decision making, and the department course for this patient. I have also personally directed, reviewed, and agree with the discharge instructions and disposition.
[2018-05-09 18:43] LABS: BLOOD UREA NITROGEN 46 mg/dL (7-17); GFR NON-AFRICAN AMERICAN 36
[2018-05-09 18:44] LABS: ALB/GLOB RATIO 1.3 (1.0-2.1); ALBUMIN 3.8 g/dL (3.5-5.0); ALT/SGPT 42 U/L (9-52); AST/SGOT 55 U/L (14-36); CALCIUM 8.4 mg/dl (8.6-10.4); LIPASE 261 U/L (23-300)
[2018-05-09] MEDS ORDERED: (Novolin R) Insulin Human Regular 100 units/ml vial SC ONE (18:57)
[2018-05-09] MEDS ORDERED: (Novolin R) Insulin Human Regular 100 units/ml vial IVP ONE (18:57)
[2018-05-09] MEDS ORDERED: (Novolin R) Insulin Human Regular 100 units/ml vial IVP STA (18:57)
[2018-05-09] MEDS ORDERED: (Novolin R) Insulin Human Regular 100 units/ml vial ONE ×3 (19:44→23:12)
[2018-05-09] MEDS ORDERED: Glucagon Recombinant 1 mg Inj IM PRN (21:52)
[2018-05-09] MEDS ORDERED: Dextrose 50% SYRINGE Inj (50 ml) IV PRN (21:52)
[2018-05-09] MEDS: Sodium Chloride 0.9% 1,000 ML IV SCH (22:34)
[2018-05-09] MEDS ORDERED: Sodium Chloride 0.9% 1,000 ML ONE (23:11)
[2018-05-09] MEDS: (Novolin R) Insulin Human Regular 100 units/ml vial SC SCH (23:29)
--- NOTE | 2018-05-09 23:37 | CP.PCM.HP ---
<Roe Lopez - Last Filed: 05/10/18 04:07> History of Present Illness - History of Present Illness History of Present Illness: PGY-1 H&P note for Dr Urias Patient is a 53 year old female with past medical history of DMII, hypertension, bipolar disorder, anxiety, peripheral neuropathy that came to the ED after feeling dizzy and having an episode of syncope earlier today. Patient's is at bedside and states she was [place] when she started feeling dizzy and fell but did not experience any trauma. Patient states she recovered at a nearby bench. Patient states she fell at home twice yesterday. Patient admits to 2 episodes of watery, non bloody diarrhea, which she has been experiencing in the past week. She admits to urinary incontinence and increase frequency, as well as burning and pain at urination, but denies blood in the urine. admits to chills, and diaphoresis, as well as generalized weakness, and back pain. Denies fever, headaches, changes in vision, nausea, vomiting, abdominal pain. Denies sick contacts or recent sickness. Admits to 20 pound weight gain in the past 2 months. PMD: [facility] Code Status: Full Code Allergies: NKDA Pmhx: DM, HTN, Bipolar disorder, anxiety, peripheral neuropathy Shx: I and D in back (2017) Fmhx: mother (possible DM) Sochx: denies tobacco, alcohol, drug use. currently disabled. Meds: As per records from [facility] - Humalog 15 units, BID, Celexa 20mg, Lisinopril 5 mg, HCTZ 25 mg, Simvastatin 10 mg, gabapentin 300 mg TID , Vistaril 50 mg PO PRN Present on Admission - Present on Admission Any Indicators Present on Admission: No Review of Systems - Review of Systems All systems: reviewed and no additional remarkable complaints except Review of Systems: as stated in HPI Past Patient History - Infectious Disease Hx of Infectious Diseases: None - Past Medical History & Family History Past Medical History?: Yes - Past Social History Smoking Status: Never Smoked - CARDIAC Hx Hypercholesterolemia: Yes (RIGHT LEG) Hx Hypertension: Yes - PULMONARY Hx Respiratory Disorders: Yes - NEUROLOGICAL Hx Neurological Disorder: No - HEENT Hx HEENT Problems: No - RENAL Hx Chronic Kidney Disease: No - ENDOCRINE/METABOLIC Hx Diabetes Mellitus Type 2: Yes - HEMATOLOGICAL/ONCOLOGICAL Hx Blood Disorders: No - INTEGUMENTARY Hx Camacho: Yes - MUSCULOSKELETAL/RHEUMATOLOGICAL Other/Comment: "DIABETIC NERVE PAIN IN MY FEET AND LEFT HAND" - PSYCHIATRIC Hx Bipolar Disorder: Yes Hx Schizophrenia: Yes Hx Substance Use: No - SURGICAL HISTORY Hx Coronary Stent: Yes - ANESTHESIA Hx Anesthesia: Yes Hx Anesthesia Reactions: No Meds Allergies/Adverse Reactions: Allergies Allergy/AdvReac Type Severity Reaction Status Date / Time No Known Allergies Allergy Verified 05/09/18 17:11 Physical Exam - Constitutional Appears: Non-toxic, No Acute Distress - Head Exam Head Exam: ATRAUMATIC, NORMAL INSPECTION, NORMOCEPHALIC - Eye Exam Eye Exam: EOMI, Normal appearance - ENT Exam ENT Exam: Mucous Membranes Moist, Normal Exam, Normal Oropharynx - Neck Exam Neck exam: Positive for: Full Rom, Normal Inspection. Negative for: Lymphadenopathy, Tenderness, Thyromegaly - Respiratory Exam Respiratory Exam: Clear to Auscultation Bilateral, NORMAL BREATHING PATTERN. absent: Rales, Rhonchi, Wheezes - Cardiovascular Exam Cardiovascular Exam: REGULAR RHYTHM, +S1, +S2 - GI/Abdominal Exam GI & Abdominal Exam: Normal Bowel Sounds, Soft. absent: Distended, Guarding, Tenderness - Extremities Exam Extremities exam: Positive for: full ROM, normal inspection, pedal edema, pedal pulses present Additional comments: bilateral lower extremity nonpitting edema - Back Exam Back exam: FULL ROM, NORMAL INSPECTION. absent: rash noted, tenderness - Neurological Exam Neurological exam: Alert, CN II-XII Intact, Oriented x3 - Psychiatric Exam Psychiatric exam: Flat Affect, Normal Mood - Skin Skin Exam: Dry, Intact, Normal Color, Warm Results - Vital Signs Recent Vital Signs: Last Vital Signs Temp 97.4 F L 05/09/18 19:54 Pulse 61 05/09/18 22:45 Resp 18 05/09/18 22:45 BP 104/63 05/09/18 22:45 Pulse Ox 97 05/09/18 20:33 - Labs Result Diagrams: 05/09/18 18:14 05/10/18 00:41 Labs: Laboratory Results - last 24 hr 05/09/18 05/09/18 05/09/18 18:14 18:14 18:14 WBC 10.0 RBC 4.30 Hgb 12.4 Hct 37.2 MCV 86.4 MCH 28.8 MCHC 33.3 RDW 12.6 Plt Count 268 MPV 9.2 Neut % (Auto) 65.6 Lymph % (Auto) 25.9 [place] % (Auto) 4.1 Eos % (Auto) 3.2 Baso % (Auto) 1.2 Neut # (Auto) 6.6 Lymph # (Auto) 2.6 [place] # (Auto) 0.4 Eos # (Auto) 0.3 Baso # (Auto) 0.1 PT 10.8 INR 1.0 APTT 30 pO2 VBG pH VBG pCO2 VBG HCO3 VBG Total CO2 VBG O2 Sat (Calc) VBG Base Excess VBG Potassium Glucose Lactate FiO2 Crit Value Called To Crit Value Called By Crit Value Read Back Blood Gas Notified Time Sodium 132 Potassium 6.6 H* D Chloride 98 Carbon Dioxide 25 Anion Gap 16 BUN 46 H Creatinine 1.5 H Est GFR ( Amer) 44 Est GFR (Non-Af Amer) 36 Random Glucose 570 H* D Calcium 8.4 L Magnesium 2.3 Total Bilirubin 0.6 AST 55 H D ALT 42 Alkaline Phosphatase 192 H D Total Protein 6.7 Albumin 3.8 Globulin 3.0 Albumin/Globulin Ratio 1.3 Lipase 261 Venous Blood Potassium Alcohol, Quantitative < 10 05/09/18 18:20 WBC RBC Hgb Hct MCV MCH MCHC RDW Plt Count MPV Neut % (Auto) Lymph % (Auto) [place] % (Auto) Eos % (Auto) Baso % (Auto) Neut # (Auto) Lymph # (Auto) [place] # (Auto) Eos # (Auto) Baso # (Auto) PT INR APTT pO2 28 L VBG pH 7.30 L VBG pCO2 55 VBG HCO3 23.3 VBG Total CO2 28.8 H VBG O2 Sat (Calc) 63.2 VBG Base Excess -0.3 L VBG Potassium 6.4 H* Glucose 563 H* D Lactate 1.7 FiO2 21.0 Crit Value Called To Dr light Crit Value Called By [facility] [place] Crit Value Read Back Y Blood Gas Notified Time 1824 Sodium 135.0 Potassium Chloride 103.0 Carbon Dioxide Anion Gap BUN Creatinine Est GFR ( Amer) Est GFR (Non-Af Amer) Random Glucose Calcium Magnesium Total Bilirubin AST ALT Alkaline Phosphatase Total Protein Albumin Globulin Albumin/Globulin Ratio Lipase Venous Blood Potassium 6.4 H* Alcohol, Quantitative Assessment & Plan - Assessment and Plan (Free Text) Plan: 1. Hyperglycemia, 2/2 Uncontrolled DM - Glucose 563 at ED - NS @ 200 mls/hr - accucheck Q3 hours - Normal Insulin sliding scale - low dose protocol 2. hyperkalemia - Potassium 6.6 at ED - NS @ 200 mls/hr - repeat BMP at midnight - am labs 3. Hx of HTN - home meds HCTZ 25 mg PO daily - Lisinopril 5mg PO Daily - held due to hyperkalemia 4. Hx of bipolar disorder - Celexa 20 mg PO QD - Atarax 50mg PO HS PRN 5. Hx of Neuropathic pain of both feet - home med Gabapentin 300mg, PO TID 6. Hx of Hyperlipidemia - crestor 2.5mg PO HS 7. prophylaxis - Heparin 5, 000 SC Q8hrs - HHD, low CHO diet Plan discussed with Dr Bridgett Lopez - Date & Time Date: 05/09/18 Time: 23:27 <Demetrio Urias - Last Filed: 05/10/18 06:17> Results - Vital Signs Recent Vital Signs: Last Vital Signs Temp 97.8 F 05/09/18 23:50 Pulse 56 L 05/10/18 04:10 Resp 20 05/09/18 23:50 BP 95/69 L 05/09/18 23:50 Pulse Ox 97 05/10/18 00:36 - Labs Result Diagrams: 05/09/18 18:14 05/10/18 00:41 Labs: Laboratory Results - last 24 hr 05/09/18 05/09/18 05/09/18 18:14 18:14 18:14 WBC 10.0 RBC 4.30 Hgb 12.4 Hct 37.2 MCV 86.4 MCH 28.8 MCHC 33.3 RDW 12.6 Plt Count 268 MPV 9.2 Neut % (Auto) 65.6 Lymph % (Auto) 25.9 [place] % (Auto) 4.1 Eos % (Auto) 3.2 Baso % (Auto) 1.2 Neut # (Auto) 6.6 Lymph # (Auto) 2.6 [place] # (Auto) 0.4 Eos # (Auto) 0.3 Baso # (Auto) 0.1 PT 10.8 INR 1.0 APTT 30 pO2 VBG pH VBG pCO2 VBG HCO3 VBG Total CO2 VBG O2 Sat (Calc) VBG Base Excess VBG Potassium Glucose Lactate FiO2 Crit Value Called To Crit Value Called By Crit Value Read Back Blood Gas Notified Time Sodium 132 Potassium 6.6 H* D Chloride 98 Carbon Dioxide 25 Anion Gap 16 BUN 46 H Creatinine 1.5 H Est GFR ( Amer) 44 Est GFR (Non-Af Amer) 36 Random Glucose 570 H* D Calcium 8.4 L Magnesium 2.3 Total Bilirubin 0.6 AST 55 H D ALT 42 Alkaline Phosphatase 192 H D Total Protein 6.7 Albumin 3.8 Globulin 3.0 Albumin/Globulin Ratio 1.3 Lipase 261 Venous Blood Potassium Alcohol, Quantitative < 10 05/09/18 05/10/18 18:20 00:41 WBC RBC Hgb Hct MCV MCH MCHC RDW Plt Count MPV Neut % (Auto) Lymph % (Auto) [place] % (Auto) Eos % (Auto) Baso % (Auto) Neut # (Auto) Lymph # (Auto) [place] # (Auto) Eos # (Auto) Baso # (Auto) PT INR APTT pO2 28 L VBG pH 7.30 L VBG pCO2 55 VBG HCO3 23.3 VBG Total CO2 28.8 H VBG O2 Sat (Calc) 63.2 VBG Base Excess -0.3 L VBG Potassium 6.4 H* Glucose 563 H* D Lactate 1.7 FiO2 21.0 Crit Value Called To Dr light Crit Value Called By [facility], [place] Crit Value Read Back Y Blood Gas Notified Time 1824 Sodium 135.0 138 Potassium 5.9 H Chloride 103.0 108 H Carbon Dioxide 23 Anion Gap 12 BUN 44 H Creatinine 1.2 Est GFR ( Amer) 56 Est GFR (Non-Af Amer) 47 Random Glucose 162 H Calcium 8.5 L Magnesium Total Bilirubin AST ALT Alkaline Phosphatase Total Protein Albumin Globulin Albumin/Globulin Ratio Lipase Venous Blood Potassium 6.4 H* Alcohol, Quantitative Assessment & Plan - Date & Time Date: 05/10/18 (I have seen and examined the patient. I agree with the findings and plan of care as documented by Dr. Lopez. Patient with uncontrolled diabetes. Hyperglycemia. Hyperkalemia. IVF. Accuchecks and NISS. Monitor BMP. Received fluid and insulin bolus in ED. History of hypertension. Con tinue HCTz. Hold Lisinopril for now. Monitor for acute changes.) Time: 06:15 Attending/Attestation - Attestation I have personally seen and examined this patient.: Yes I have fully participated in the care of the patient.: Yes I have reviewed all pertinent clinical information: Yes
[2018-05-10 00:55] VITALS: RESP 20
[2018-05-10 00:59] LABS: CALCIUM 8.5 mg/dl (8.6-10.4)
[2018-05-10] MEDS: Sodium Chloride 0.9% 1,000 ML IV SCH ×2 (01:25→02:55)
[2018-05-10] MEDS ORDERED: Sodium Chloride 0.9% 1,000 ML IV SCH (04:54)
[2018-05-10 07:24] LABS: URINE BACTERIA MANY (<OCC); URINE BILIRUBIN NEGATIVE (NEGATIVE); URINE BLOOD 1+ (NEGATIVE); URINE CLARITY Hazy (Clear); URINE COLOR Yellow (YELLOW); URINE GLUCOSE (UA) 3+ mg/dL (Normal); URINE LEUKOCYTE ESTERASE 2+ Leu/uL (Negative); URINE PROTEIN NEGATIVE (NEGATIVE); URINE UROBILINOGEN NORMAL mg/dL (0.2-1.0)
[2018-05-10 07:27] LABS: BARBITURATES, UR NEGATIVE (NEGATIVE); OPIATES, UR NEGATIVE (NEGATIVE); PHENCYCLIDINE, UR NEGATIVE (NEGATIVE)
[2018-05-10 07:54] LABS: BENZODIAZEPINES, UR POSITIVE (NEGATIVE)
[2018-05-10] MEDS: (Novolin R) Insulin Human Regular 100 units/ml vial SC SCH ×4 (08:20→21:33)
--- NOTE | 2018-05-10 09:10 | RAD ---
Chest x-ray single frontal view HISTORY: Hyperkalemia. COMPARISON: 12/04/2017 FINDINGS: Mild venous congestion. Mild patchy increased markings in the right infrahilar region and left lung base. Enlarged ectatic aorta. Mild cardiomegaly. Degenerative changes in the spine. IMPRESSION: Mild venous congestion. Mild patchy increased markings in the right infrahilar region and left lung base. Enlarged ectatic aorta. Mild cardiomegaly.
[2018-05-10] MEDS ORDERED: Dextrose 50% SYRINGE Inj (50 ml) IV PRN (09:54)
[2018-05-10] MEDS ORDERED: Glucagon Recombinant 1 mg Inj IM PRN (09:54)
[2018-05-10] MEDS ORDERED: Sod Polystyrene Sulf 15 gm/60 ml Susp PO ONE (09:54)
[2018-05-10 11:10] LABS: BASO # 0.1 K/uL (0.0-0.2); EOS # 0.3 K/uL (0.0-0.7); EOS % 3.2 % (0.0-4.0); HEMOGLOBIN 12.6 g/dL (11.0-16.0); LYMPH # 2.6 K/uL (1.0-4.3); LYMPH % 31.9 % (20.0-40.0); MEAN CORPUSCULAR HGB CONC 33.7 g/dL (33.0-37.0); MEAN PLATELET VOLUME 9.6 fL (7.2-11.7); MONO # 0.3 K/uL (0.0-0.8); MONO % 3.7 % (0.0-10.0); NEUT # 4.9 K/uL (1.8-7.0); NEUT % 60.2 % (50.0-75.0); NRBC % 0.1 % (0.0-2.0); RBC 4.34 Mil/uL (3.80-5.20); RED CELL DISTRIBUTION WIDTH 12.8 % (11.5-14.5); WHITE BLOOD COUNT 8.1 K/uL (4.8-10.8)
[2018-05-10 11:14] LABS: ARTERIAL BLOOD GAS HCO3 22.8 mmol/L (21-28); ARTERIAL BLOOD GAS HEMOGLOBIN 11.6 g/dL (11.7-17.4); ARTERIAL BLOOD GAS O2 SAT 97.8 % (95-98); ARTERIAL BLOOD GAS PCO2 43 mm/Hg (35-45); ARTERIAL BLOOD GAS PH 7.34 (7.35-7.45); ARTERIAL BLOOD GAS PO2 74 mm/Hg (80-100); ARTERIAL BLOOD GAS TCO2 24.5 mmol/L (22-28)
--- NOTE | 2018-05-10 11:49 | CARD ---
APPROVED REPORT Date of service: 05/09/2018 EKG Measurement Heart [id number] <Conclusion> Normal sinus rhythm Normal ECG
[2018-05-10 11:57] LABS: ALB/GLOB RATIO 1.4 (1.0-2.1); ALBUMIN 3.8 g/dL (3.5-5.0); ALT/SGPT 43 U/L (9-52); AST/SGOT 46 U/L (14-36); BLOOD UREA NITROGEN 31 mg/dL (7-17); GFR NON-AFRICAN AMERICAN 58
[2018-05-10 14:05] LABS: URINE BACTERIA RARE (<OCC); URINE BILIRUBIN NEGATIVE (NEGATIVE); URINE BLOOD NEGATIVE (NEGATIVE); URINE CLARITY Hazy (Clear); URINE COLOR Yellow (YELLOW); URINE GLUCOSE (UA) 2+ mg/dL (Normal); URINE LEUKOCYTE ESTERASE 2+ Leu/uL (Negative); URINE PROTEIN NEGATIVE (NEGATIVE); URINE UROBILINOGEN NORMAL mg/dL (0.2-1.0)
--- NOTE | 2018-05-10 15:40 | CP.PCM.PN ---
Subjective - Date & Time of Evaluation Date of Evaluation: 05/10/18 Time of Evaluation: 15:34 - Subjective Subjective: HOSPITALIST SERVICE Pt seen and examined at bedside, bizarre subjective history, expresses delusions and preoccupied thoughts. Pt denies cp fc nv Objective - Vital Signs/Intake and Output Vital Signs (last 24 hours): Temp Pulse Resp BP Pulse Ox 98.2 F 66 20 143/84 100 05/10/18 07:00 05/10/18 11:58 05/10/18 07:00 05/10/18 09:09 05/10/18 07:00 - Medications Medications: Current Medications Albuterol/Ipratropium (Duoneb 3 Mg/0.5 Mg (3 Ml) Ud) 3 ml INH RQ6 [facility] Citalopram Hydrobromide (Celexa) 20 mg PO DAILY [facility] Last Admin: 05/10/18 09:08 Dose: 20 mg Dextrose (Dextrose 50% Inj) 0 ml IV STAT PRN; Protocol PRN Reason: Hypoglycemia Protocol Dextrose (Glutose 15) 0 gm PO ONCE PRN; Protocol PRN Reason: Hypoglycemia Protocol Dextrose (Dextrose 50% Inj) 0 ml IV STAT PRN; Protocol PRN Reason: Hypoglycemia Protocol Dextrose (Glutose 15) 0 gm PO ONCE PRN; Protocol PRN Reason: Hypoglycemia Protocol Gabapentin (Neurontin) 300 mg PO BID [facility] Last Admin: 05/10/18 10:23 Dose: 300 mg Glucagon (Glucagen Diagnostic Kit) 0 mg IM STAT PRN; Protocol PRN Reason: Hypoglycemia Protocol Glucagon (Glucagen Diagnostic Kit) 0 mg IM STAT PRN; Protocol PRN Reason: Hypoglycemia Protocol Heparin Sodium (Porcine) (Heparin) 5,000 units SC Q8 [facility] Last Admin: 05/10/18 13:16 Dose: 5,000 units Hydrochlorothiazide (Hydrodiuril) 25 mg PO DAILY [facility] Last Admin: 05/10/18 09:07 Dose: 25 mg Hydroxyzine HCl (Atarax) 50 mg PO HS PRN PRN Reason: Anxiety Dextrose (Dextrose 5% In Water 1000 Ml) 1,000 mls @ 0 mls/hr IV .Q0M PRN; Protocol PRN Reason: Hypoglycemia Protocol Sodium Chloride (Sodium Chloride 0.9%) 1,000 mls @ 100 mls/hr IV .Q10H [facility] Last Admin: 05/10/18 08:43 Dose: 100 mls/hr Dextrose (Dextrose 5% In Water 1000 Ml) 1,000 mls @ 0 mls/hr IV .Q0M PRN; Protocol PRN Reason: Hypoglycemia Protocol Influenza Virus Vaccine (Fluzone Quad [id number]) 60 mcg IM .ONCE ONE Stop: 05/11/18 10:01 Insulin Human Regular (Novolin R) 0 unit SC ACHS [facility]; Protocol Last Admin: 05/10/18 12:16 Dose: 2 units Lisinopril (Zestril) 5 mg PO DAILY [facility] Last Admin: 05/10/18 09:08 Dose: 5 mg Rosuvastatin Calcium (Crestor) 2.5 mg PO HS [facility] - Labs Labs: 05/10/18 11:06 05/10/18 11:06 PT 10.8 SECONDS (9.7-12.2) 05/09/18 18:14 INR 1.0 05/09/18 18:14 APTT 30 SECONDS (21-34) 05/09/18 18:14 - Additional Findings Additional findings: - Constitutional Appears: Non-toxic, No Acute Distress - Head Exam Head Exam: ATRAUMATIC, NORMAL INSPECTION, NORMOCEPHALIC - Eye Exam Eye Exam: EOMI, Normal appearance - ENT Exam ENT Exam: Mucous Membranes Moist, Normal Exam, Normal Oropharynx - Neck Exam Neck exam: Positive for: Full Rom, Normal Inspection. Negative for: Lymphadenopathy, Tenderness, Thyromegaly - Respiratory Exam Respiratory Exam: Clear to Auscultation Bilateral, NORMAL BREATHING PATTERN. absent: Rales, Rhonchi, Wheezes - Cardiovascular Exam Cardiovascular Exam: REGULAR RHYTHM, +S1, +S2 - GI/Abdominal Exam GI & Abdominal Exam: Normal Bowel Sounds, Soft. absent: Distended, Guarding, Tenderness - Extremities Exam Extremities exam: Positive for: full ROM, normal inspection, pedal edema, pedal pulses present Additional comments: bilateral lower extremity nonpitting edema - Back Exam Back exam: FULL ROM, NORMAL INSPECTION. absent: rash noted, tenderness - Neurological Exam Neurological exam: Alert, CN II-XII Intact, Oriented x3 - Psychiatric Exam Psychiatric exam: Flat Affect, Bizarre thoughts - Skin Skin Exam: Dry, Intact, Normal Color, Warm Assessment and Plan - Assessment and Plan (Free Text) Assessment: 1. Hyperglycemia, 2/2 Uncontrolled DM - Glucose 563 at ED, today 260s - accucheck Q6 hours - Normal Insulin sliding scale - low dose protocol 2. hyperkalemia - Potassium 6.6 at ED down to 5.9 -Kayexelate 50mg x1 -Albuterol q6 -f/u EKG -ISS LOW - repeat BMP at 7pm - f/u am labs 3. Hx of HTN - home meds HCTZ 25 mg PO daily, HCTZY 50mg HS - Lisinopril 5mg PO Daily - held due to hyperkalemia 4. Hx of bipolar disorder - Celexa 20 mg PO QD - Atarax 50mg PO HS PRN - Dr Mata consulted Psychiatry f/u recs 5. Hx of Neuropathic pain of both feet - home med Gabapentin 300mg, PO TID 6. Hx of Hyperlipidemia - crestor 2.5mg PO HS 7. prophylaxis - Heparin 5, 000 SC Q8hrs - HHD, low CHO diet
[2018-05-10] MEDS: Rosuvastatin Calcium 2.5 mg Tab PO SCH (21:40)
[2018-05-11] MEDS: Albuterol-Ipratrop 3 mg / 0.5 (3 ml) UD INH SCH ×4 (01:36→20:20)
[2018-05-11 08:15] LABS: BASO # 0.1 K/uL (0.0-0.2); BASO % 1.4 % (0.0-2.0); EOS # 0.2 K/uL (0.0-0.7); EOS % 3.6 % (0.0-4.0); HEMOGLOBIN 11.8 g/dL (11.0-16.0); LYMPH # 2.2 K/uL (1.0-4.3); LYMPH % 36.9 % (20.0-40.0); MEAN CELL VOLUME 87.6 fL (81.0-99.0); MEAN CORPUSCULAR HEMOGLOBIN 29.5 pg (27.0-31.0); MEAN CORPUSCULAR HGB CONC 33.6 g/dL (33.0-37.0); MEAN PLATELET VOLUME 9.6 fL (7.2-11.7); MONO # 0.2 K/uL (0.0-0.8); MONO % 3.9 % (0.0-10.0); NEUT # 3.2 K/uL (1.8-7.0); NEUT % 54.2 % (50.0-75.0); NRBC % 0.2 % (0.0-2.0); RBC 4.02 Mil/uL (3.80-5.20); RED CELL DISTRIBUTION WIDTH 12.6 % (11.5-14.5); WHITE BLOOD COUNT 5.9 K/uL (4.8-10.8)
[2018-05-11 08:51] LABS: ALB/GLOB RATIO 1.1 (1.0-2.1); ALBUMIN 3.2 g/dL (3.5-5.0); ALT/SGPT 43 U/L (9-52); AST/SGOT 37 U/L (14-36); BLOOD UREA NITROGEN 30 mg/dL (7-17); CALCIUM 7.9 mg/dl (8.6-10.4); GFR NON-AFRICAN AMERICAN 52
[2018-05-11] MEDS: (Novolin R) Insulin Human Regular 100 units/ml vial SC SCH ×2 (08:54→13:28)
[2018-05-11] MEDS ORDERED: Influenza Vaccine 60 MCG/0.5 ML SYR (3 yr & up) IM ONE (10:00)
--- NOTE | 2018-05-11 10:03 | CP.PCM.PN ---
Subjective - Date & Time of Evaluation Date of Evaluation: 05/11/18 Time of Evaluation: 09:59 - Subjective Subjective: HOSPITALIST SERVICE Pt seen and and examined at bedside. Pt denies acute events overnight, Pt however began to feel SOB this morning. denies CP fc nv Objective - Vital Signs/Intake and Output Vital Signs (last 24 hours): Temp Pulse Resp BP Pulse Ox 97.4 F L 64 20 121/59 L 97 05/11/18 07:20 05/11/18 07:20 05/11/18 07:20 05/11/18 07:20 05/11/18 07:20 - Medications Medications: Current Medications Albuterol/Ipratropium (Duoneb 3 Mg/0.5 Mg (3 Ml) Ud) 3 ml INH RQ6 [facility] Last Admin: 05/11/18 07:38 Dose: 3 ml Calcium Gluconate (Calcium Gluconate) 500 mg PO DAILY [facility] Citalopram Hydrobromide (Celexa) 20 mg PO DAILY [facility] Last Admin: 05/11/18 09:38 Dose: 20 mg Dextrose (Dextrose 50% Inj) 0 ml IV STAT PRN; Protocol PRN Reason: Hypoglycemia Protocol Dextrose (Glutose 15) 0 gm PO ONCE PRN; Protocol PRN Reason: Hypoglycemia Protocol Dextrose (Dextrose 50% Inj) 0 ml IV STAT PRN; Protocol PRN Reason: Hypoglycemia Protocol Dextrose (Glutose 15) 0 gm PO ONCE PRN; Protocol PRN Reason: Hypoglycemia Protocol Gabapentin (Neurontin) 300 mg PO BID [facility] Last Admin: 05/11/18 09:38 Dose: 300 mg Glucagon (Glucagen Diagnostic Kit) 0 mg IM STAT PRN; Protocol PRN Reason: Hypoglycemia Protocol Glucagon (Glucagen Diagnostic Kit) 0 mg IM STAT PRN; Protocol PRN Reason: Hypoglycemia Protocol Heparin Sodium (Porcine) (Heparin) 5,000 units SC Q8 [facility] Last Admin: 05/11/18 05:30 Dose: 5,000 units Hydrochlorothiazide (Hydrodiuril) 25 mg PO DAILY [facility] Last Admin: 05/11/18 09:38 Dose: 25 mg Hydroxyzine HCl (Atarax) 50 mg PO HS PRN PRN Reason: Anxiety Dextrose (Dextrose 5% In Water 1000 Ml) 1,000 mls @ 0 mls/hr IV .Q0M PRN; Protocol PRN Reason: Hypoglycemia Protocol Dextrose (Dextrose 5% In Water 1000 Ml) 1,000 mls @ 0 mls/hr IV .Q0M PRN; Protocol PRN Reason: Hypoglycemia Protocol Influenza Virus Vaccine (Fluzone Quad [id number]) 60 mcg IM .ONCE ONE Stop: 05/11/18 10:01 Last Admin: 05/11/18 09:38 Dose: 60 mcg Insulin Human Regular (Novolin R) 0 unit SC ACHS [facility]; Protocol Last Admin: 05/11/18 08:54 Dose: 5 units Lisinopril (Zestril) 5 mg PO DAILY [facility] Last Admin: 05/10/18 09:08 Dose: 5 mg Rosuvastatin Calcium (Crestor) 2.5 mg PO HS [facility] Last Admin: 05/10/18 21:40 Dose: 2.5 mg - Labs Labs: 05/11/18 08:07 05/11/18 08:07 PT 10.8 SECONDS (9.7-12.2) 05/09/18 18:14 INR 1.0 05/09/18 18:14 APTT 30 SECONDS (21-34) 05/09/18 18:14 - Additional Findings Additional findings: - Constitutional Appears: Non-toxic, No Acute Distress - Head Exam Head Exam: ATRAUMATIC, NORMAL INSPECTION, NORMOCEPHALIC - Eye Exam Eye Exam: EOMI, Normal appearance - ENT Exam ENT Exam: Mucous Membranes Moist, Normal Exam, Normal Oropharynx - Neck Exam Neck exam: Positive for: Full Rom, Normal Inspection. Negative for: Lymphadenopathy, Tenderness, Thyromegaly - Respiratory Exam Respiratory Exam: Clear to Auscultation Bilateral, NORMAL BREATHING PATTERN. absent: Rales, Rhonchi, Wheezes - Cardiovascular Exam Cardiovascular Exam: REGULAR RHYTHM, +S1, +S2 - GI/Abdominal Exam GI & Abdominal Exam: Normal Bowel Sounds, Soft. absent: Distended, Guarding, Tenderness - Extremities Exam Extremities exam: Positive for: full ROM, normal inspection, pedal edema, pedal pulses present Additional comments: bilateral lower extremity nonpitting edema - Back Exam Back exam: FULL ROM, NORMAL INSPECTION. absent: rash noted, tenderness - Neurological Exam Neurological exam: Alert, CN II-XII Intact, Oriented x3 - Psychiatric Exam Psychiatric exam: Flat Affect, Bizarre thoughts - Skin Skin Exam: Dry, Intact, Normal Color, Warm Assessment and Plan - Assessment and Plan (Free Text) Assessment: Hyperglycemia, 2/2 Uncontrolled DM - Glucose 563 at ED, today 260s - accucheck Q6 hours - Normal Insulin sliding scale - low dose protocol Hyperkalemia - Potassium 6.0 - Dr Pulido Nephag consulted likely due to residual AYALA inh, Heparin and diet Low K diet ordered Heparin d/c -Kayexelate 50mg, refused second dose today -Albuterol q6 -EKG nsr -ISS LOW - f/u am labs Chronic DVT -L leg pos on dopplers, chronic -Lovenox 100sc q12 Hx of HTN - home meds HCTZ 25 mg PO daily, HCTZY 50mg HS - Lisinopril 5mg PO Daily - held due to hyperkalemia Hx of bipolar disorder - Celexa 20 mg PO QD - Atarax 50mg PO HS PRN - Dr Mata consulted Psychiatry f/u recs Hx of Neuropathic pain of both feet - home med Gabapentin 300mg, PO TID Hx of Hyperlipidemia - crestor 2.5mg PO HS PPX - Lovenox 100 sc q12 - HHD, low CHO diet , low K+
[2018-05-11] MEDS ORDERED: Albuterol-Ipratrop 3 mg / 0.5 (3 ml) UD INH STA (11:46)
[2018-05-11] MEDS ORDERED: Sod Polystyrene Sulf 15 gm/60 ml Susp PO ONE (11:48)
[2018-05-11] MEDS: Sodium Chloride 0.9% 1,000 ML IV SCH (13:29)
[2018-05-11 14:45] LABS: CALCIUM 8.5 mg/dl (8.6-10.4)
--- NOTE | 2018-05-11 16:41 | PCM.PSYCH ---
Initial Psychiatric Evaluation - Initial Psychiatric Evaluation Type of Admission: Voluntary Legal Status: Capacity Chief Complaint (in patient's own words): I dont want to see any psychiatrist.' History of Present Illness and Precipitating Events: Patient is a 53 year old female who is currently in a relationship, lives with her boyfriend, and 5 children, came to the hospital yesterday because she passed out. The patient was seen by psychiatry because of a disorganized behavior. Per staff patient has been talking to herself and she has been religiously preoccupied. She appears paranoid and delusional and internally preoccupied. She reports history of multiple inpatient psychiatric hospitalizations in the past for schizophrenia and bipolar disorder. She reports history of follow-up with an unknown psychiatrist in the past. She was a poor historian and remained guarded about the details throughout the interview. Initially she said she does not want to speak to a psychiatrist. However later on she reports of irrit ability and agitation. She appears paranoid and delusional but she denies any auditory or visual hallucinations or any paranoia. She denies any suicidal ideation or any homicidal ideation. She denies alcohol, tobacco, or illicit drug use. Past Psych History: Bipolar disorder and schizophrenia Past Family Psych History: denies Past Medical History: Hypertension, Diabetes, "Bladder Problem" Current Medications: Active Medications Generic Name Dose Route Start Last Admin Trade Name Freq PRN Reason Stop Dose Admin Albuterol/Ipratropium 3 ml 05/10/18 14:00 05/11/18 14:25 Duoneb 3 Mg/0.5 Mg (3 Ml) Ud INH 3 ml RQ6 TRACY Administration Citalopram Hydrobromide 20 mg 05/10/18 10:00 05/11/18 09:38 Celexa PO 20 mg DAILY TRACY Administration Dextrose 0 ml 05/09/18 21:52 Dextrose 50% Inj IV STAT PRN Hypoglycemia Protocol Protocol Dextrose 0 gm 05/09/18 21:52 Glutose 15 PO ONCE PRN Hypoglycemia Protocol Protocol Dextrose 0 ml 05/10/18 09:54 Dextrose 50% Inj IV STAT PRN Hypoglycemia Protocol Protocol Dextrose 0 gm 05/10/18 09:54 Glutose 15 PO ONCE PRN Hypoglycemia Protocol Protocol Enoxaparin Sodium 100 mg 05/11/18 22:00 Lovenox SC Q12 TRACY Gabapentin 300 mg 05/10/18 10:00 05/11/18 09:38 Neurontin PO 300 mg BID TRACY Administration Glucagon 0 mg 05/09/18 21:52 Glucagen Diagnostic Kit IM STAT PRN Hypoglycemia Protocol Protocol Glucagon 0 mg 05/10/18 09:54 Glucagen Diagnostic Kit IM STAT PRN Hypoglycemia Protocol Protocol Heparin Sodium (Porcine) 5,000 units 05/11/18 18:00 Heparin SC Q12H TRACY Hydrochlorothiazide 25 mg 05/10/18 10:00 05/11/18 09:38 Hydrodiuril PO 25 mg DAILY TRACY Administration Hydroxyzine HCl 50 mg 05/09/18 23:45 Atarax PO HS PRN Anxiety Dextrose 1,000 mls @ 0 mls/hr 05/09/18 21:52 Dextrose 5% In Water 1000 Ml IV .Q0M PRN Hypoglycemia Protocol Protocol Per Protocol Dextrose 1,000 mls @ 0 mls/hr 05/10/18 09:54 Dextrose 5% In Water 1000 Ml IV .Q0M PRN Hypoglycemia Protocol Protocol Per Protocol Sodium Chloride 1,000 mls @ 80 mls/hr 05/11/18 13:00 05/11/18 13:29 Sodium Chloride 0.9% IV 80 mls/hr .[id number] TRACY Administration Insulin Aspart 0 unit 05/11/18 16:30 Novolog SC ACHS TRACY Protocol Lisinopril 5 mg 05/10/18 10:00 05/10/18 09:08 Zestril PO 5 mg DAILY TRACY Administration Rosuvastatin Calcium 2.5 mg 05/10/18 22:00 05/10/18 21:40 Crestor PO 2.5 mg HS TRACY Administration Past Psychiatric History - Past Psychiatric History Previous Treatment History: Inpatient Pertinent Medical Hx (Current Medical&Sleep Prob, Allergies): Allergies Allergy/AdvReac Type Severity Reaction Status Date / Time No Known Allergies Allergy Verified 05/09/18 17:11 Novolog 30 units SC DAILY 03/10/14 Ketoconazole [Nizoral A-D] 125 ml TP BID #3 sha 03/18/15 Gabapentin 300 mg PO TID #60 capsule 01/10/16 Lisinopril 5 mg PO DAILY #30 tablet 01/10/16 Metformin HCl 500 mg PO BID #60 tablet 01/10/16 Simvastatin 20 mg PO DAILY #30 tablet 01/10/16 ARIPiprazole [Abilify] 5 mg PO HS #30 tab 06/14/16 levoFLOXacin [Levaquin] 500 mg PO DAILY #10 tab 06/14/16 Ciprofloxacin HCl [Cipro] 250 mg PO BID #6 tab 09/21/16 Cefpodoxime [Vantin] 400 mg PO BID #28 tab 11/24/16 Gabapentin [Neurontin] 300 mg PO TID #90 cap 11/24/16 Hydrochlorothiazide [Microzide] 25 mg PO DAILY #60 cap 11/24/16 Insulin Lispro Protamin/Lispro [Humalog Mix75/25 75 U/ml-25 U/ml 3 ml] 10 ml SC BID #100 unit 11/24/16 Lisinopril [Zestril] 5 mg PO DAILY #30 tab 11/24/16 Mupirocin 2% Ointment [Bactroban Ointment] 1 appl TP DAILY #1 tube 11/24/16 Simvastatin 10 mg PO HS #30 tablet 11/24/16 Ondansetron [Zofran Odt] 4 mg PO TID #7 odt 12/23/16 Gabapentin [Neurontin] 300 mg PO TID #20 cap 12/04/17 Lisinopril [Prinivil] 5 mg PO DAILY #30 tablet 12/04/17 MetFORMIN [glucoPHAGE] 1,000 mg PO BID #60 tab 12/04/17 Sulfamethoxazole/Trimethoprim [Bactrim DS 800 mg-160 mg] 1 tab PO BID #14 tab 12/04/17 Review of Systems - Review of Systems All systems: reviewed and no additional remarkable complaints except - Psychiatric Psychiatric: Anxiety, Auditory Hallucinations, Irritability, Paranoia. absent: Suicidal Ideation Mental Status Examination - Personal Presentation Personal Presentation: Looks stated age - Affect Affect: Broad - Motor Activity Motor Activity: Psychomotor Agitation - Reliability in Providing Information Reliability in Providing Information: Poor, due to alteration in thoughts, Poor, due to altered mood - Speech Speech: Disorganized - Mood Mood: Anxious - Formal Thought Process Formal Thought Process: Hallucinations, Delusions, Paranoia, Loosening of associations - Hallucinations/Delusions Hallucinations: Auditory Delusions: Persecution - Obsessions/Compulsions Obsessions: No Compulsions: No - Cognitive Functions Orientation: Person, Place, Situation, Time Sensorium: Alert Attention/Concentration: Attentive Abstract Thinking: Martin Estimate of Intelligence: Below average Judgement: Imparied, as evidence by: Poor judgement, Imparied, as evidence by: Lack of insight into illness - Risk Risk: Diminished functioning - Limitations Limitations: Living alone DSM 5 DX - DSM 5 DSM 5 Diagnosis: Schizoaffective disorder bipolar type - Recommended/Plan of Treatment Treatment Recommendations and Plan of Treatment: Schizoaffective disorder bipolar type CBD Psychoeducation Abilify 10 mg p.o. nightly Gabapentin 300 mg p.o. twice daily Trazodone 50 mg p.o. nightly Klonopin 0.5 g p.o. twice daily - Smoking Cessation Smoking Cessation Initiated: No
[2018-05-11] MEDS: (Novolog) Insulin Aspart, Recombinant 100 u/ml 10 ml vial SC SCH ×2 (17:50→21:31)
[2018-05-11] MEDS: Rosuvastatin Calcium 2.5 mg Tab PO SCH (21:31)
[2018-05-11] MEDS ORDERED: Enoxaparin 100 mg Syringe SC SCH (22:00)
[2018-05-12] MEDS: Albuterol-Ipratrop 3 mg / 0.5 (3 ml) UD INH SCH ×4 (02:55→19:40)
--- NOTE | 2018-05-12 04:26 | CON ---
DATE: 05/11/2018 NEPHROLOGY CONSULTATION HISTORY OF PRESENT ILLNESS: A 53-year-old female with past medical history of hypertension, diabetes, bipolar disorder, anxiety, peripheral neuropathy presented to ED after feeling dizzy and having syncopal episode. Nephrology now being consulted for hyperkalemia. The patient is very confrontational during encounter, difficult to get accurate information. Per record, she started having dizziness recently and fell at home twice on day before presentation. Also reportedly had 2 episodes of watery diarrhea, which she has been experiencing over the previous week. The patient also reportedly having urinary incontinence and increased frequency as well as dysuria. Per my encounter with her, she says that she has not been eating well lately due to lack of food. Reportedly losing weight. The patient also blaming medical provider for not giving her regular medications. Currently, the patient is eating well while in the hospital. Had multiple bowel movements after she was given Kayexalate and is therefore refusing further Kayexalate. The patient also reporting back pain that is hindering her ambulation. She otherwise denies any difficulty breathing. Reports chronic lower extremity edema. PAST MEDICAL HISTORY: As above. SOCIAL HISTORY: Her record denies tobacco, alcohol, and drug use. FAMILY HISTORY: Mother possibly with diabetes. REVIEW OF SYSTEMS: CONSTITUTIONAL: As per HPI reporting. HEENT: Not reporting any blurry vision. RESPIRATORY: Not reporting any dyspnea. CARDIOVASCULAR: As per HPI. GASTROINTESTINAL: As per HPI. GENITOURINARY: As per HPI. MUSCULOSKELETAL: As per HPI. PSYCHIATRIC: History of bipolar disorder and anxiety. SKIN: Report some pruritus. PHYSICAL EXAMINATION: GENERAL: No distress, but is agitated at times. VITAL SIGNS: Blood pressure this morning 121/59, heart rate 64, respirations 20, temperature 97.4, O2 sat 97% on room air. HEENT: Moist mucous membranes, nonicteric. No cervical lymphadenopathy. RESPIRATORY: Lungs are clear to auscultation bilaterally. No rales. No rhonchi. No wheezes. CARDIOVASCULAR: Heart sounds S1 and S2, normal. No murmurs, gallops, or rubs. GASTROINTESTINAL: Abdomen is soft and nontender and nondistended. GENITOURINARY: No bladder distention. EXTREMITIES: 1+ bilateral lower leg edema. SKIN: Warm. No cyanosis. PSYCHIATRIC: Agitated at times. NEUROLOGIC: Mild tremor present. LABORATORY DATA: CBC this morning, WBC 5.9, hemoglobin 11.8, hematocrit 35.2, platelets 231. Chemistry panel: Sodium 135, potassium 6, chloride 105, bicarb 22, BUN 30, creatinine 1.1, glucose 342, calcium 7.9, phosphorus 3.5, magnesium 2.1. AST 37, ALT 43, albumin 3.2. Hemoglobin A1c 12.1%. UA from yesterday negative for protein, 2+ glucose, 29 wbc's per high power field. Chest x-ray on presentation, lungs clear. ASSESSMENT AND PLAN: 1. Hyperkalemia. The patient with history of diabetes and mild chronic kidney disease, likely has some element of aldosterone deficiency/resistance in the setting of diabetes. The patient was on small dose of lisinopril, currently on hold. Unclear if the patient was taking any medications prior to presentation that may be contributory. For now, we will focus on potassium removal with first diuresis using IV fluids, IV Lasix. Starting NS at 80 mL/hour. Giving single dose of IV Lasix 20 mg. Giving single dose of Florinef 0.1 mg. Agree with holding lisinopril. Recommend to decrease heparin dosing to every 12 hours. Low potassium diet. 2. Chronic kidney disease, relatively mild. No overt albuminuria. We will check urine for microalbumin and protein-creatinine ratio. We will obtain renal ultrasound. Avoid nephrotoxic agents. 3. Hypertension. Blood pressure currently at lower end of normal. We will hold antihypertensive meds for now. Thank you for this referral. We will be following up closely. Luis Enrique Pulido MD
--- NOTE | 2018-05-12 07:05 | VASCLAB ---
Date of service: 05/11/2018 PROCEDURE: Lower Extremity Venous Duplex Exam. HISTORY: hx of DVT on R leg PRIORS: None. TECHNIQUE: Bilateral common femoral, femoral, popliteal and posterior tibial, peroneal and great saphenous veins were evaluated. Flow was assessed with color Doppler, compressibility, assessment of phasic flow and augmentation response. Report prepared by Timothy Arevalo, ROOPA, RVT FINDINGS: RIGHT: 1. Common Femoral Vein: 1.1. Compressibility - Partial: Thrombus - Chronic : Flow - Reduced : Augmentation -Reduced: Reflux - None. 2. Femoral Vein: 2.1. Compressibility - Partial: Thrombus - Acute : Flow - Reduced : Augmentation -Reduced: Reflux - None. 3. Popliteal Vein: 3.1. Compressibility - Partial: Thrombus - Acute : Flow - Reduced : Augmentation -Reduced: Reflux - None. 4. Posterior Tibial Vein: 4.1. Compressibility - Fully compressible: Thrombus - None: Flow - Phasic: Augmentation -Normal: Reflux - None. 5. Peroneal Vein: 5.1. Compressibility - Fully compressible: Thrombus - None: Flow - Phasic: Augmentation -Normal: Reflux - None. 6. Great Saphenous Vein: 6.1. Compressibility - Fully compressible: Thrombus - None: Flow - Phasic: Augmentation - Normal: Reflux - None. LEFT: 1. Common Femoral Vein: 1.1. Compressibility - Fully compressible: Thrombus - None: Flow - Phasic: Augmentation -Normal: Reflux - None. 2. Femoral Vein: 2.1. Compressibility - Fully compressible: Thrombus - None: Flow - Phasic: Augmentation -Normal: Reflux - None. 3. Popliteal Vein: 3.1. Compressibility - Fully compressible: Thrombus - None : Flow - Phasic: Augmentation -Normal: Reflux - None. 4. Posterior Tibial Vein: 4.1. Compressibility - Fully compressible: Thrombus - None: Flow - Phasic: Augmentation -Normal: Reflux - None. 5. Peroneal Vein: 5.1. Compressibility - Fully compressible: Thrombus - None: Flow - Phasic: Augmentation -Normal: Reflux - None. 6. Great Saphenous Vein: 6.1. Compressibility - Fully compressible: Thrombus - None: Flow - Phasic: Augmentation - Normal: Reflux - None. OTHER FINDINGS: MIKEY Foster notified about the findings. IMPRESSION: Right: Chronic thrombosis of the right common femoral, femoral and popliteal veins with severe reduction of the venous return. Left: No evidence of deep or superficial vein thrombosis of the left lower extremity. Normal valve function noted of the left side.
[2018-05-12] MEDS: (Novolog) Insulin Aspart, Recombinant 100 u/ml 10 ml vial SC SCH ×6 (08:42→21:34)
--- NOTE | 2018-05-12 09:20 | CP.PCM.PN ---
Subjective - Date & Time of Evaluation Date of Evaluation: 05/12/18 Time of Evaluation: 09:17 - Subjective Subjective: HOSPITALIST SERVICE Pt seen and examined at bedside. Pt feels luike shes calmer and mood has stabilized, pt understands current condition and agrees with plan, pt states shes compliant with new diet recs. Pt denies cp sob fc nv. denies acute pals or leg pains/ cramps Objective - Vital Signs/Intake and Output Vital Signs (last 24 hours): Temp Pulse Resp BP Pulse Ox 98.8 F 71 20 103/56 L 95 05/12/18 07:15 05/12/18 07:51 05/12/18 07:15 05/12/18 07:15 05/12/18 07:15 - Medications Medications: Current Medications Albuterol/Ipratropium (Duoneb 3 Mg/0.5 Mg (3 Ml) Ud) 3 ml INH RQ6 [facility]CLUDES [facility] Last Admin: 05/12/18 02:55 Dose: 3 ml Aripiprazole (Abilify) 10 mg PO HS [facility]CLUD[facility] Last Admin: 05/11/18 23:22 Dose: Not Given Citalopram Hydrobromide (Celexa) 20 mg PO DAILY COUNT [facility]CLUD[facility] Last Admin: 05/12/18 09:00 Dose: 20 mg Clonazepam (Klonopin) 0.5 mg PO BID [facility]CLUD[facility] Last Admin: 05/12/18 09:00 Dose: 0.5 mg Dextrose (Dextrose 50% Inj) 0 ml IV STAT PRN; Protocol PRN Reason: Hypoglycemia Protocol Dextrose (Glutose 15) 0 gm PO ONCE PRN; Protocol PRN Reason: Hypoglycemia Protocol Dextrose (Dextrose 50% Inj) 0 ml IV STAT PRN; Protocol PRN Reason: Hypoglycemia Protocol Dextrose (Glutose 15) 0 gm PO ONCE PRN; Protocol PRN Reason: Hypoglycemia Protocol Gabapentin (Neurontin) 300 mg PO BID COUNT [facility]CLUD[facility] Last Admin: 05/12/18 09:00 Dose: 300 mg Glucagon (Glucagen Diagnostic Kit) 0 mg IM STAT PRN; Protocol PRN Reason: Hypoglycemia Protocol Glucagon (Glucagen Diagnostic Kit) 0 mg IM STAT PRN; Protocol PRN Reason: Hypoglycemia Protocol Heparin Sodium (Porcine) (Heparin) 5,000 units SC Q12H [facility]CLUD[facility] Last Admin: 05/12/18 05:53 Dose: 5,000 units Hydrochlorothiazide (Hydrodiuril) 25 mg PO DAILY [facility]CLUD[facility] Last Admin: 05/12/18 09:01 Dose: 25 mg Hydroxyzine HCl (Atarax) 50 mg PO HS PRN PRN Reason: Anxiety Dextrose (Dextrose 5% In Water 1000 Ml) 1,000 mls @ 0 mls/hr IV .Q0M PRN; Protocol PRN Reason: Hypoglycemia Protocol Dextrose (Dextrose 5% In Water 1000 Ml) 1,000 mls @ 0 mls/hr IV .Q0M PRN; Protocol PRN Reason: Hypoglycemia Protocol Sodium Chloride (Sodium Chloride 0.9%) 1,000 mls @ 80 mls/hr IV .[id number] COUNT INCLUDES [facility] Last Admin: 05/11/18 13:29 Dose: 80 mls/hr Insulin Aspart (Novolog) 0 unit SC [facility] COUNT INCLUDES THE [facility]; Protocol Last Admin: 05/12/18 08:42 Dose: 6 units Lisinopril (Zestril) 5 mg PO DAILY COUNT [facility]CLUD[facility] Last Admin: 05/10/18 09:08 Dose: 5 mg Lorazepam (Ativan) 1 mg PO Q6 PRN PRN Reason: Agitation Rosuvastatin Calcium (Crestor) 2.5 mg PO [facility] Last Admin: 05/11/18 21:31 Dose: 2.5 mg Trazodone HCl (Desyrel) 50 mg PO [facility] Last Admin: 05/11/18 21:31 Dose: 50 mg - Labs Labs: 05/11/18 08:07 05/11/18 13:57 PT 10.8 SECONDS (9.7-12.2) 05/09/18 18:14 INR 1.0 05/09/18 18:14 APTT 30 SECONDS (21-34) 05/09/18 18:14 - Additional Findings Additional findings: - Constitutional Appears: Non-toxic, No Acute Distress - Head Exam Head Exam: ATRAUMATIC, NORMAL INSPECTION, NORMOCEPHALIC - Eye Exam Eye Exam: EOMI, Normal appearance - ENT Exam ENT Exam: Mucous Membranes Moist, Normal Exam, Normal Oropharynx - Neck Exam Neck exam: Positive for: Full Rom, Normal Inspection. Negative for: Lymphadenopathy, Tenderness, Thyromegaly - Respiratory Exam Respiratory Exam: Clear to Auscultation Bilateral, NORMAL BREATHING PATTERN. absent: Rales, Rhonchi, Wheezes - Cardiovascular Exam Cardiovascular Exam: REGULAR RHYTHM, +S1, +S2 - GI/Abdominal Exam GI & Abdominal Exam: Normal Bowel Sounds, Soft. absent: Distended, Guarding, Tenderness - Extremities Exam Extremities exam: Positive for: full ROM, normal inspection, pedal edema, pedal pulses present Additional comments: bilateral lower extremity nonpitting edema - Back Exam Back exam: FULL ROM, NORMAL INSPECTION. absent: rash noted, tenderness - Neurological Exam Neurological exam: Alert, CN II-XII Intact, Oriented x3 - Psychiatric Exam Psychiatric exam: Flat Affect, Bizarre thoughts - Skin Skin Exam: Dry, Intact, Normal Color, Warm Assessment and Plan - Assessment and Plan (Free Text) Assessment: Hyperglycemia, 2/2 Uncontrolled DM - Glucose 563 at ED, today 260s - accucheck Q6 hours - Normal Insulin sliding scale - High dose - Dr Ellsworth Endocrine consulted: f/u recs Hyperkalemia resolved - Potassium 5.2 - Dr Pulido Nephro consulted likely due to residual AYALA inh, Heparin and diet Low K diet ordered Heparin 5000 q12 -Kayexelate 50mg, refused second dose today -Albuterol q6 -EKG nsr -ISS LOW Chronic DVT -L leg pos on dopplers, chronic -Heparin 5000u sc q12 Hx of HTN - home meds HCTZ 25 mg PO daily, HCTZY 50mg HS - Lisinopril 5mg PO Daily - held due to hyperkalemia Hx of bipolar disorder - Celexa 20 mg PO QD - Atarax 50mg PO HS PRN - Dr Mata consulted Psychiatry Abilify Celexa Trazodone Klonopin Ativan PRN Hx of Neuropathic pain of both feet - home med Gabapentin 300mg, PO TID Hx of Hyperlipidemia - crestor 2.5mg PO HS PPX - Heparin 5000u q12 - HHD, low CHO diet , low K+ - cancelled abd X ray, was told by radiology previously confirmed on old CXR
[2018-05-12 11:11] LABS: BASO # 0.1 K/uL (0.0-0.2); BASO % 1.2 % (0.0-2.0); EOS # 0.2 K/uL (0.0-0.7); EOS % 2.6 % (0.0-4.0); HEMOGLOBIN 12.1 g/dL (11.0-16.0); LYMPH # 1.9 K/uL (1.0-4.3); LYMPH % 28.6 % (20.0-40.0); MEAN CELL VOLUME 87.8 fL (81.0-99.0); MEAN CORPUSCULAR HEMOGLOBIN 29.1 pg (27.0-31.0); MEAN CORPUSCULAR HGB CONC 33.1 g/dL (33.0-37.0); MEAN PLATELET VOLUME 9.4 fL (7.2-11.7); MONO # 0.3 K/uL (0.0-0.8); NEUT # 4.2 K/uL (1.8-7.0); NEUT % 63.6 % (50.0-75.0); RBC 4.15 Mil/uL (3.80-5.20); RED CELL DISTRIBUTION WIDTH 12.7 % (11.5-14.5); WHITE BLOOD COUNT 6.5 K/uL (4.8-10.8)
[2018-05-12 11:30] LABS: ALB/GLOB RATIO 1.3 (1.0-2.1); ALBUMIN 3.7 g/dL (3.5-5.0); ALT/SGPT 40 U/L (9-52); AST/SGOT 36 U/L (14-36); BLOOD UREA NITROGEN 25 mg/dL (7-17); CALCIUM 8.7 mg/dl (8.6-10.4); GFR NON-AFRICAN AMERICAN 58
--- NOTE | 2018-05-12 11:43 | US ---
Date of service: 05/12/2018 PROCEDURE: Ultrasound of the Kidneys HISTORY: ckd COMPARISON: None available. TECHNIQUE: Grayscale imaging was performed. FINDINGS: RIGHT KIDNEY: Measures: 9.8 cm. Normal in size, contour and echogenicity. No stone, solid mass lesion or hydronephrosis visualized. LEFT KIDNEY: Measures: 11.1 cm. Normal in size, contour and echogenicity. No stone, solid mass lesion or hydronephrosis visualized. OTHER FINDINGS: None. IMPRESSION: Unremarkable renal sonogram.
--- NOTE | 2018-05-12 20:47 | CP.PCM.PN ---
Subjective - Date & Time of Evaluation Date of Evaluation: 05/12/18 Time of Evaluation: 14:30 - Subjective Subjective: Reports persistent R lower leg edema; tolerating diet; Objective - Vital Signs/Intake and Output Vital Signs (last 24 hours): Temp Pulse Resp BP Pulse Ox 97.9 F 77 20 109/70 98 05/12/18 16:37 05/12/18 16:37 05/12/18 16:37 05/12/18 16:37 05/12/18 16:37 - Medications Medications: Current Medications Albuterol/Ipratropium (Duoneb 3 Mg/0.5 Mg (3 Ml) Ud) 3 ml INH RQ6 [facility] Last Admin: 05/12/18 13:30 Dose: 3 ml Aripiprazole (Abilify) 10 mg PO HS [facility] Last Admin: 05/11/18 23:22 Dose: Not Given Ciprofloxacin (Cipro) 500 mg PO BID [facility]; Protocol Stop: 05/17/18 11:01 Last Admin: 05/12/18 18:20 Dose: 500 mg Citalopram Hydrobromide (Celexa) 20 mg PO DAILY [facility] Last Admin: 05/12/18 09:00 Dose: 20 mg Clonazepam (Klonopin) 0.5 mg PO BID [facility] Last Admin: 05/12/18 09:00 Dose: 0.5 mg Dextrose (Dextrose 50% Inj) 0 ml IV STAT PRN; Protocol PRN Reason: Hypoglycemia Protocol Dextrose (Glutose 15) 0 gm PO ONCE PRN; Protocol PRN Reason: Hypoglycemia Protocol Dextrose (Dextrose 50% Inj) 0 ml IV STAT PRN; Protocol PRN Reason: Hypoglycemia Protocol Dextrose (Glutose 15) 0 gm PO ONCE PRN; Protocol PRN Reason: Hypoglycemia Protocol Gabapentin (Neurontin) 300 mg PO BID [facility] Last Admin: 05/12/18 18:19 Dose: 300 mg Glucagon (Glucagen Diagnostic Kit) 0 mg IM STAT PRN; Protocol PRN Reason: Hypoglycemia Protocol Glucagon (Glucagen Diagnostic Kit) 0 mg IM STAT PRN; Protocol PRN Reason: Hypoglycemia Protocol Heparin Sodium (Porcine) (Heparin) 5,000 units SC Q12H [facility] Last Admin: 05/12/18 18:19 Dose: 5,000 units Hydrochlorothiazide (Hydrodiuril) 25 mg PO DAILY [facility] Last Admin: 05/12/18 09:01 Dose: 25 mg Hydroxyzine HCl (Atarax) 50 mg PO HS PRN PRN Reason: Anxiety Dextrose (Dextrose 5% In Water 1000 Ml) 1,000 mls @ 0 mls/hr IV .Q0M PRN; Protocol PRN Reason: Hypoglycemia Protocol Dextrose (Dextrose 5% In Water 1000 Ml) 1,000 mls @ 0 mls/hr IV .Q0M PRN; Protocol PRN Reason: Hypoglycemia Protocol Sodium Chloride (Sodium Chloride 0.9%) 1,000 mls @ 80 mls/hr IV .[id number] [facility] Last Admin: 05/11/18 13:29 Dose: 80 mls/hr Insulin Aspart (Novolog) 10 unit SC AC [facility] Last Admin: 05/12/18 18:19 Dose: 10 units Insulin Aspart (Novolog) 0 unit SC ACHS [facility] Last Admin: 05/12/18 17:03 Dose: Not Given Insulin Glargine (Lantus) 24 unit SC [facility] Lisinopril (Zestril) 5 mg PO DAILY [facility] Last Admin: 05/10/18 09:08 Dose: 5 mg Lorazepam (Ativan) 1 mg PO Q6 PRN PRN Reason: Agitation Rosuvastatin Calcium (Crestor) 2.5 mg PO [facility] Last Admin: 05/11/18 21:31 Dose: 2.5 mg Trazodone HCl (Desyrel) 50 mg PO [facility] Last Admin: 05/11/18 21:31 Dose: 50 mg - Labs Labs: 05/12/18 11:05 05/12/18 11:05 PT 10.8 SECONDS (9.7-12.2) 05/09/18 18:14 INR 1.0 05/09/18 18:14 APTT 30 SECONDS (21-34) 05/09/18 18:14 - Constitutional Appears: Non-toxic, No Acute Distress - Eye Exam Eye Exam: Normal appearance - Respiratory Exam Respiratory Exam: Clear to Ausculation Bilateral. absent: Respiratory Distress - Cardiovascular Exam Cardiovascular Exam: RRR, +S1, +S2 - GI/Abdominal Exam GI & Abdominal Exam: Soft. absent: Distended, Tenderness - Extremities Exam Additional comments: moderate b/l lower leg edema R > L; - Neurological Exam Neurological Exam: Alert, Awake - Psychiatric Exam Psychiatric exam: absent: Agitated - Skin Skin Exam: Warm. absent: Cyanosis Assessment and Plan (1) Hyperkalemia Assessment & Plan: Improved with medical management; keeping on low K diet and off AYALA inhibitor; Status: Acute (2) Hypertension Assessment & Plan: Currently normotensive; will hold thiazide diuretic for now (possibly added previously due to lower ext edema); will order echo to look for evidence of pulm htn; Status: Chronic (3) DVT (deep venous thrombosis) Assessment & Plan: RLE ext DVT, reports first occurrence during her early 30's; possibly has IVC filter; consider thrombophila workup; will likely need lifelong AC; Status: Chronic
[2018-05-12] MEDS: Rosuvastatin Calcium 2.5 mg Tab PO SCH (21:43)
[2018-05-12] MEDS ORDERED: (Lantus) Insulin Glargine, Recombinant SC SCH (22:00)
[2018-05-13] MEDS: Albuterol-Ipratrop 3 mg / 0.5 (3 ml) UD INH SCH ×3 (01:05→14:50)
--- NOTE | 2018-05-13 01:57 | CON ---
DATE: 05/12/2018 ENDOCRINOLOGY CONSULTATION LOCATION: Room 557. HISTORY OF PRESENT ILLNESS: This is a 53-year-old female with known history of type 2 insulin-requiring diabetes on Humalog taken at 15 units b.i.d. with meals as noted. She has been admitted now with sudden onset of dizziness with supervening syncopal episode and is now being referred for diabetic evaluation because of persistent hyperglycemic accelerations as noted. PAST MEDICAL HISTORY: As mentioned above. History of type 2 insulin-requiring diabetes on a short-acting insulin regimen at home, history of hypertension and dyslipidemia, history of bipolar disorder with generalized anxiety state, history of diabetic polyneuropathy with lower extremity paresthesia. FAMILY HISTORY: Positive for diabetes and hypertension. SOCIAL HISTORY: The patient has supportive family. No known substance use. REVIEW OF SYSTEMS: As mentioned above, but the patient has mild weakness with supervening dizziness and lightheadedness worse on the day of admission, also admits to bifrontal headaches and frequent near syncopal and syncopal episodes over the last few days prior to admission. No chest pain, palpitations, or PND. Her oral intake has been variable with dyspepsia, vague upper abdominal pain, and recent loose watery diarrhea. Also admits lower extremity pain for paresthesia. PHYSICAL EXAMINATION: GENERAL: This is an overweight female, in no apparent distress. VITAL SIGNS: Blood pressure of 140/80, pulse of 100 beats per minute and regular, temperature 98, respirations 20. Height is 5 feet 6 inches. Weight is 222 pounds. HEENT: Head: Normocephalic. Eyes: Anicteric with pink conjunctivae. Funduscopy not possible at this time. Ears, nose, and throat otherwise normal. NECK: Supple. Thyroid gland is normal in size. No carotid bruits or any cervical adenopathy. CARDIOPULMONARY: Some adynamic precordium. S1 and S2, rapid and regular. LUNGS: Clear to auscultation. ABDOMEN: Flat and soft with positive bowel sounds. EXTREMITIES: No peripheral edema. Pulses are +2 bilaterally. LABORATORY DATA: Her chemistry showed a BUN of 25, sodium 137, potassium 5.2, chloride 106, CO2 of 25, glucose 293, and creatinine 1. Her initial potassium was apparently 6.6 on admission and hemoglobin A1c was reported as 12.1, which is clearly elevated and indicative of suboptimal metabolic control of her diabetic condition even prior to this admission. Her glucose levels over the last 24 hours have ranged from 318 to 371 mg/dL. ASSESSMENT: This is a 53-year-old female with uncontrolled and decompensated type 2 insulin-requiring diabetes with a recent syncopal episode and currently undergoing neurological work at this time and also with supervening marked hyperkalemia, the most common cause would be dehydration with spurious hyponatremia from the extreme hyperglycemic accelerations and increased osmotic diuresis thereof. We have to exclude any underlying type 4 distal renal tubular acidosis also at this point in time. PLAN OF MANAGEMENT: We will modify her current insulin regimen to a more physiologic basal and bolus insulin drug combination to optimize metabolic control. We will add NovoLog at 10 units subcu t.i.d. before meals despite today as ordered. We will also add basal insulin with Lantus 24 units subcu at bedtime daily to start tonight. We will modify the coverage scale to obviate hypoglycemia and detailed orders have been given. We will obtain serial chemistries and supplement accordingly as needed. We will also obtain plasma renin activity level, serum cortisol level, and TSH level to exclude any underlying endocrinopathy. We will follow. Judi Ellsworth MD
[2018-05-13] MEDS: Sodium Chloride 0.9% 1,000 ML IV SCH (03:24)
[2018-05-13] MEDS: (Novolog) Insulin Aspart, Recombinant 100 u/ml 10 ml vial SC SCH ×4 (07:26→12:14)
[2018-05-13 07:33] LABS: BASO # 0.1 K/uL (0.0-0.2); BASO % 1.3 % (0.0-2.0); EOS # 0.3 K/uL (0.0-0.7); EOS % 3.6 % (0.0-4.0); LYMPH # 2.4 K/uL (1.0-4.3); LYMPH % 31.6 % (20.0-40.0); MEAN CORPUSCULAR HEMOGLOBIN 28.3 pg (27.0-31.0); MEAN CORPUSCULAR HGB CONC 33.1 g/dL (33.0-37.0); MEAN PLATELET VOLUME 9.6 fL (7.2-11.7); MONO # 0.3 K/uL (0.0-0.8); MONO % 4.3 % (0.0-10.0); NEUT # 4.6 K/uL (1.8-7.0); NEUT % 59.2 % (50.0-75.0); NRBC % 0.1 % (0.0-2.0); RBC 3.88 Mil/uL (3.80-5.20); RED CELL DISTRIBUTION WIDTH 13.1 % (11.5-14.5); WHITE BLOOD COUNT 7.7 K/uL (4.8-10.8)
[2018-05-13 07:37] LABS: MEAN CELL VOLUME 85.4 fL (81.0-99.0)
[2018-05-13 07:59] LABS: ALB/GLOB RATIO 1.2 (1.0-2.1); ALBUMIN 3.4 g/dL (3.5-5.0); ALT/SGPT 43 U/L (9-52); AST/SGOT 47 U/L (14-36); BLOOD UREA NITROGEN 24 mg/dL (7-17); CALCIUM 8.8 mg/dl (8.6-10.4); GFR NON-AFRICAN AMERICAN > 60; HDL CHOLESTEROL 39 mg/dL (30-70); LDL CHOLESTEROL 104 mg/dL (0-129)
[2018-05-13] MEDS ORDERED: (Novolog) Insulin Aspart, Recombinant 100 u/ml 10 ml vial SC SCH ×2 (11:42→12:30)
[2018-05-13 16:30] VITALS: BP 110/74; PULSE 79; TEMP 98.2; O2SAT 94
--- NOTE | 2018-05-13 19:54 | CP.PCM.DIS ---
Provider - Provider Date of Admission: 05/09/18 19:35 Attending physician: Demetrio Urias MD Consults: 05/10/18 13:40 Pastoral Care Referral Routine Comment: Physician Instructions: Reason For Exam: desires restoration counseling Psychiatry Consult Routine Comment: Consulting Provider: Arcadio Mata Consulting Physician: Arcadio Mata Reason for Consult: bizzare behavior 05/11/18 11:48 Nephrology Consult Routine Comment: Consulting Provider: Luis Enrique Pulido Consulting Physician: Luis Enrique Pulido Reason for Consult: persistent hyperkalemia 05/12/18 11:01 Endocrinology Consult Routine Comment: Consulting Provider: Judi Ellsworth Consulting Physician: Judi Ellsworth Reason for Consult: diabetic, a1c 12.1, homeless, Time Spent in preparation of Discharge (in minutes): 31 Hospital Course - Lab Results Lab Results: Micro Results 05/10/18 13:53 Urine Urine Culture - Final Escherichia Coli Most Recent Lab Values WBC 7.7 K/uL (4.8-10.8) 05/13/18 07:20 RBC 3.88 Mil/uL (3.80-5.20) 05/13/18 07:20 Hgb 11.0 g/dL (11.0-16.0) 05/13/18 07:20 Hct 33.2 % (34.0-47.0) L 05/13/18 07:20 MCV 85.4 fL (81.0-99.0) D 05/13/18 07:20 MCH 28.3 pg (27.0-31.0) 05/13/18 07:20 MCHC 33.1 g/dL (33.0-37.0) 05/13/18 07:20 RDW 13.1 % (11.5-14.5) 05/13/18 07:20 Plt Count 209 K/uL (130-400) 05/13/18 07:20 MPV 9.6 fL (7.2-11.7) 05/13/18 07:20 Neut % (Auto) 59.2 % (50.0-75.0) 05/13/18 07:20 Lymph % (Auto) 31.6 % (20.0-40.0) 05/13/18 07:20 [place] % (Auto) 4.3 % (0.0-10.0) 05/13/18 07:20 Eos % (Auto) 3.6 % (0.0-4.0) 05/13/18 07:20 Baso % (Auto) 1.3 % (0.0-2.0) 05/13/18 07:20 Neut # (Auto) 4.6 K/uL (1.8-7.0) 05/13/18 07:20 Lymph # (Auto) 2.4 K/uL (1.0-4.3) 05/13/18 07:20 [place] # (Auto) 0.3 K/uL (0.0-0.8) 05/13/18 07:20 Eos # (Auto) 0.3 K/uL (0.0-0.7) 05/13/18 07:20 Baso # (Auto) 0.1 K/uL (0.0-0.2) 05/13/18 07:20 Differential Comment 05/13/18 07:20 Haptoglobin 184.5 mg/dL (30.0-200.0) 05/11/18 14:00 PT 10.8 SECONDS (9.7-12.2) 05/09/18 18:14 INR 1.0 05/09/18 18:14 APTT 30 SECONDS (21-34) 05/09/18 18:14 Fibrinogen 353 mg/dL (200-400) 05/11/18 13:57 Puncture Site Lb 05/10/18 11:10 pCO2 43 mm/Hg (35-45) 05/10/18 11:10 pO2 74 mm/Hg (80-100) L 05/10/18 11:10 HCO3 22.8 mmol/L (21-28) 05/10/18 11:10 ABG pH 7.34 (7.35-7.45) L 05/10/18 11:10 ABG Total CO2 24.5 mmol/L (22-28) 05/10/18 11:10 ABG O2 Saturation 97.8 % (95-98) 05/10/18 11:10 ABG Base Excess -2.6 mmol/L (-2.0-3.0) L 05/10/18 11:10 ABG Hemoglobin 11.6 g/dL (11.7-17.4) L 05/10/18 11:10 ABG Carboxyhemoglobin 1.8 % (0.5-1.5) H 05/10/18 11:10 POC ABG HHb (Measured) 2.1 % (0.0-5.0) 05/10/18 11:10 ABG Methemoglobin 1.4 % (0.0-3.0) 05/10/18 11:10 [place]pe Test Na 05/10/18 11:10 VBG pH 7.30 (7.32-7.43) L 05/09/18 18:20 VBG pCO2 55 mmHg (40-60) 05/09/18 18:20 VBG HCO3 23.3 mmol/L 05/09/18 18:20 VBG Total CO2 28.8 mmol/L (22-28) H 05/09/18 18:20 VBG O2 Sat (Calc) 63.2 % (40-65) 05/09/18 18:20 VBG Base Excess -0.3 mmol/L (0.0-2.0) L 05/09/18 18:20 VBG Potassium 6.4 mmol/L (3.6-5.2) H* 05/09/18 18:20 A-a O2 Difference 22.0 mm/Hg 05/10/18 11:10 Respiratory Index 0.3 05/10/18 11:10 Hgb O2 Saturation 94.6 % (95.0-98.0) L 05/10/18 11:10 Sodium 135.0 mmol/l (132-148) 05/09/18 18:20 Chloride 103.0 mmol/L (98-107) 05/09/18 18:20 Glucose 563 mg/dl (65-105) H* D 05/09/18 18:20 Lactate 1.7 mmol/L (0.7-2.1) 05/09/18 18:20 FiO2 21.0 % 05/10/18 11:10 Crit Value Called To Dr light 05/09/18 18:20 Crit Value Called By [place] 05/09/18 18:20 Crit Value Read Back Y 05/09/18 18:20 Blood Gas Notified Time 1824 05/09/18 18:20 Sodium 136 mmol/L (132-148) 05/13/18 07:20 Potassium 4.9 mmol/L (3.6-5.2) 05/13/18 07:20 Chloride 104 mmol/L (98-107) 05/13/18 07:20 Carbon Dioxide 25 mmol/L (22-30) 05/13/18 07:20 Anion Gap 12 (10-20) 05/13/18 07:20 BUN 24 mg/dL (7-17) H 05/13/18 07:20 Creatinine 0.9 mg/dL (0.7-1.2) 05/13/18 07:20 Est GFR ( Amer) > 60 05/13/18 07:20 Est GFR (Non-Af Amer) > 60 05/13/18 07:20 POC Glucose (mg/dL) 213 mg/dL (65-110) H 05/13/18 11:49 Random Glucose 230 mg/dL (65-105) H 05/13/18 07:20 Hemoglobin A1c 12.1 % (4.2-6.5) H D 05/11/18 13:57 Calcium 8.8 mg/dl (8.6-10.4) 05/13/18 07:20 Phosphorus 3.3 mg/dL (2.5-4.5) 05/13/18 07:20 Magnesium 1.8 mg/dL (1.6-2.3) 05/13/18 07:20 Total Bilirubin 0.6 mg/dL (0.2-1.3) 05/13/18 07:20 AST 47 U/L (14-36) H D 05/13/18 07:20 ALT 43 U/L (9-52) 05/13/18 07:20 Alkaline Phosphatase 130 U/L (38-126) H 05/13/18 07:20 Lactate Dehydrogenase 643 U/L (313-618) H 05/11/18 13:57 Total Protein 6.3 g/dL (6.3-8.3) 05/13/18 07:20 Albumin 3.4 g/dL (3.5-5.0) L 05/13/18 07:20 Globulin 2.9 gm/dL (2.2-3.9) 05/13/18 07:20 Albumin/Globulin Ratio 1.2 (1.0-2.1) 05/13/18 07:20 Triglycerides 256 mg/dL (0-149) H D 05/13/18 07:20 Cholesterol 172 mg/dL (0-199) 05/13/18 07:20 LDL Cholesterol Direct 104 mg/dL (0-129) 05/13/18 07:20 HDL Cholesterol 39 mg/dL (30-70) 05/13/18 07:20 Lipase 261 U/L (23-300) 05/09/18 18:14 TSH 3rd Generation 1.53 mIU/L (0.46-4.68) 05/13/18 07:20 Cortisol AM Sample 9.3 ug/dL (4.46-22.7) 05/13/18 07:20 Venous Blood Potassium 6.4 mmol/L (3.6-5.2) H* 05/09/18 18:20 Urine Color Yellow (YELLOW) 05/10/18 13:53 Urine Clarity Hazy (Clear) 05/10/18 13:53 Urine pH 6.0 (5.0-8.0) 05/10/18 13:53 Ur Specific [place] 1.015 (1.003-1.030) 05/10/18 13:53 Urine Protein Negative mg/dL (NEGATIVE) 05/10/18 13:53 Urine Glucose (UA) 2+ mg/dL (Normal) H 05/10/18 13:53 Urine Ketones Negative mg/dL (NEGATIVE) 05/10/18 13:53 Urine Blood Negative (NEGATIVE) 05/10/18 13:53 Urine Nitrate Negative (NEGATIVE) 05/10/18 13:53 Urine Bilirubin Negative (NEGATIVE) 05/10/18 13:53 Urine Urobilinogen Normal mg/dL (0.2-1.0) 05/10/18 13:53 Ur Leukocyte Esterase 2+ Eduarda/uL (Negative) H 05/10/18 13:53 Urine WBC (Auto) 29 /hpf (0-5) H 05/10/18 13:53 Urine RBC (Auto) 3 /hpf (0-3) 05/10/18 13:53 Urine Bacteria Rare (<OCC) 05/10/18 13:53 U Random Total Protein 192 mg/g creat (21-161) H 05/12/18 08:18 Urine Creatinine 26 mg/dL (20-275) 05/11/18 08:50 Urine Microalbumin 1.5 mg/dL 05/11/18 08:50 Microalb/Creat Ratio 56 (<30) H 05/11/18 08:50 Urine Opiates Screen Negative (NEGATIVE) 05/10/18 07:02 Urine Methadone Screen Negative (NEGATIVE) 05/10/18 07:02 Ur Barbiturates Screen Negative (NEGATIVE) 05/10/18 07:02 Ur Phencyclidine Scrn Negative (NEGATIVE) 05/10/18 07:02 Ur Amphetamines Screen Negative (NEGATIVE) 05/10/18 07:02 U Benzodiazepines Scrn Positive (NEGATIVE) 05/10/18 07:02 U Oth Cocaine Metabols Negative (NEGATIVE) 05/10/18 07:02 U Cannabinoids Screen Negative (NEGATIVE) 05/10/18 07:02 Alcohol, Quantitative < 10 mg/dl (0-10) 05/09/18 18:14 Discharge Exam - Head Exam Head Exam: ATRAUMATIC, NORMAL INSPECTION, NORMOCEPHALIC - Eye Exam Eye Exam: EOMI Pupil Exam: NORMAL ACCOMODATION - ENT Exam ENT Exam: Mucous Membranes Moist - Respiratory Exam Respiratory Exam: Clear to PA & Lateral, NORMAL BREATHING PATTERN. absent: Rales, Rhonchi - Cardiovascular Exam Cardiovascular Exam: REGULAR RHYTHM, +S1, +S2 - GI/Abdominal Exam GI & Abdominal Exam: Normal Bowel Sounds, Soft. absent: Firm, Guarding, Rebound, Rigid Additional comments: obese habitus - Extremities Exam Extremities exam: pedal pulses present - Neurological Exam Neurological exam: Alert, Oriented x3 - Psychiatric Exam Psychiatric exam: Normal Affect, Normal Mood - Skin Skin Exam: Dry, Intact, Normal Color, Warm Discharge Plan - Discharge Medications Prescriptions: RX: ARIPiprazole [Abilify] 10 mg PO HS #30 tab RX: Ciprofloxacin [Cipro] 500 mg PO BID 4 Days tab RX: Citalopram [celEXA] 20 mg PO DAILY #30 tab RX: clonazePAM [Klonopin] 0.5 mg PO BID #10 tab RX: Gabapentin [Neurontin] 300 mg PO BID 5 Days #10 cap RX: Insulin Aspart, Recombinant [Novolog] 12 unit SC AC #1 vial RX: Insulin Glargine, Recombina [Lantus] 24 unit SC HS #1 vial RX: Rosuvastatin Calcium 2.5 [Crestor] 2.5 mg PO HS #30 tab - Follow Up Plan Condition: STABLE Disposition: HOME/ ROUTINE Instructions: Hyperglycemia, Adult (DC), Diabetes and Diet Referrals: Arcadio Mata MD [Staff Provider] - Luis Enrique Pulido MD [Staff Provider] - Attending/Attestation - Attestation I have personally seen and examined this patient.: Yes I have fully participated in the care of the patient.: Yes I have reviewed all pertinent clinical information, including history, physical exam and plan: Yes Notes (Text): Patient is medically stable for discharge. Patient recommended to establish care with the [facility] on [address] [place] [address], . Patient recommended referrals to psychiatry, adaptive physical educator, and will need to follow-up for her annual screening exams for her diabetes with the clinic, pain management referral, referral to behavior and counselling. Medications reconciled on discharge and scripts provided to nurse at bedside. Patient will need extensive diabetic education and management upon discharge.
--- NOTE | 2018-05-13 20:52 | PN ---
DATE: 05/13/2018 SUBJECTIVE: The patient is presenting here with sudden onset of dizziness with supervening syncopal episode with concomitant hyperglycemic accelerations and is now being followed closely for metabolic management. Her glycemic levels are still fluctuating as noted overnight with glucose levels ranging from 203 to 233 mg/dL. LABORATORY DATA: Her latest chemistry showed a BUN of 24, sodium 136, potassium 4.9, chloride 104, CO2 is 25, glucose is 230, and creatinine is 0.9. Her TSH is 1.53 with a cortisol of 9.3 mcg/dL. Her A1c is 12.1%, which is extremely elevated and indicative of suboptimal metabolic control of her diabetic condition. ASSESSMENT: This is a 53-year-old female with uncontrolled and decompensated type 2 insulin-requiring diabetes, presenting here with marked hyperglycemic accelerations clearly indicative of suboptimal metabolic control of her diabetic condition with a subtherapeutic insulin regimen as given on the outside. PLAN OF MANAGEMENT: We will modify once again her basal and bolus insulin regimen and increase the Lantus to 30 units subcutaneously at bedtime daily to start tonight. We will increase her prandial insulin with NovoLog to be given as 12 units subcutaneously t.i.d. to start at lunchtime today as ordered. We will modify the low dose correction scale using NovoLog insulin to obviate hypoglycemia and detailed orders have been given. We will obtain serial chemistries and supplement accordingly as needed. We will follow. Judi Ellsworth MD
[2018-05-13] MEDS ORDERED: (Lantus) Insulin Glargine, Recombinant SC SCH (22:00)
--- NOTE | 2018-05-13 22:49 | CP.PCM.PN ---
Objective - Vital Signs/Intake and Output Vital Signs (last 24 hours): Temp Pulse Resp BP Pulse Ox 98.2 F 79 20 110/74 94 L 05/13/18 16:29 05/13/18 16:29 05/13/18 16:29 05/13/18 16:29 05/13/18 16:29 - Labs Labs: 05/13/18 07:20 05/13/18 07:20 PT 10.8 SECONDS (9.7-12.2) 05/09/18 18:14 INR 1.0 05/09/18 18:14 APTT 30 SECONDS (21-34) 05/09/18 18:14 Assessment and Plan (1) Hyperkalemia Status: Acute (2) Hypertension Status: Chronic (3) DVT (deep venous thrombosis) Status: Chronic
--- NOTE | 2018-05-15 14:29 | CARD ---
APPROVED REPORT Date of service: 05/13/2018 EXAM: Two-dimensional and M-mode echocardiogram with Doppler and color Doppler. INDICATION Pulmonary Hypertention RISK FACTORS Hypertension Hyperlipidemia Diabetes 2D DIMENSIONS IVSd0.5 (0.7-1.1cm)Aortic Root (2D)2.7 (2.0-3.7cm) LVDd5.2 (3.9-5.9cm)PWd0.9 (0.7-1.1cm) LA Skudqz00 (18-58mL)LVDs2.8 (2.5-4.0cm) FS (%) 45.4 %LVEF (%)76.5 (>50%) LVEF (Reyes's)60 %IVC0.00 cm M-Mode DIMENSIONS Left Atrium (MM)4.46 (2.5-4.0cm)IVSd0.89 (0.7-1.1cm) Aortic Root2.40 (2.2-3.7cm)LVDd4.57 (4.0-5.6cm) Aortic Cusp Exc.1.84 (1.5-2.0cm)PWd0.89 (0.7-1.1cm) FS (%) 44 %LVDs2.54 (2.0-3.8cm) TAPSE20.65 cmLVEF (%)76 (>50%) Mitral Valve MV E Oxepldor18.5cm/sMV A Gweiucsu83.9cm/sE/A ratio1.2 TDI Lateral E' Peak V8.93cm/sMedial E' Peak V7.71cm/sE/Lateral E'10.6 E/Medial E'12.3 Tricuspid Valve TR Peak [id number]/sTR Peak Gr.[id number] <Conclusion> normal size lv,ra & rv. la is moderately dilated. normal lv wall motion,thickness,systolic & diastolic function with lvef of 65-70%. normal aortic,mitral,tv & pv. trace mr,pi & mild tr with normal pulmonary systolic pressures of 33 mm of hg. no pericardial effusion seen. normal size aortic root & ivc.
== END 2018-05-13 17:45 | disposition home or self-care (01) | DRG 296 ==
LOC: C.ER 17:02 → C.9E 19:35 → C.5S 22:05
PROVIDERS: ADMIT Family Medicine; ATTEND Family Medicine
DX: E87.5 Hyperkalemia (principal); E11.65 Type 2 diabetes mellitus with hyperglycemia; E11.22 Type 2 diabetes mellitus with diabetic chronic kidney disease; I82.511 Chronic embolism and thrombosis of right femoral vein; I82.531 Chronic embolism and thrombosis of right popliteal vein; R32 Unspecified urinary incontinence; E11.42 Type 2 diabetes mellitus with diabetic polyneuropathy; N18.2 Chronic kidney disease, stage 2 (mild); F25.0 Schizoaffective disorder, bipolar type; E27.49 Other adrenocortical insufficiency; I25.10 Atherosclerotic heart disease of native coronary artery without angina pectoris; I12.9 Hypertensive chronic kidney disease with stage 1 through stage 4 chronic kidney disease, or unspecified chronic kidney disease; E86.0 Dehydration; E87.1 Hypo-osmolality and hyponatremia; E78.00 Pure hypercholesterolemia, unspecified; E78.5 Hyperlipidemia, unspecified; F41.1 Generalized anxiety disorder; R20.2 Paresthesia of skin; W19.XXXA Unspecified fall, initial encounter; Y92.009 Unspecified place in unspecified non-institutional (private) residence as the place of occurrence of the external cause; Z79.4 Long term (current) use of insulin; Z79.01 Long term (current) use of anticoagulants; Z95.5 Presence of coronary angioplasty implant and graft